=== PATIENT | female | born 1940 | race Caucasian/White ===

== ENCOUNTER 2017-05-07 16:17 | Inpatient (IN) | payer MEDICARE, OTHER ==
[~2017-05-07] VITALS: Ht 165.1 cm; Wt 65.8 kg
--- NOTE | 2017-05-07 16:17 | NUR ---
BIB [facility] FOR GENERALIZED WEAKNESS. NAD NOTED. PT AAO X3, RR EVEN AND UNLABORED. VSS. PT PLACED IN GOWN AND MONITOR. MD AT BEDSIDE FOR EVAL.
[2017-05-07] MEDS ORDERED: IV NS 0.9% 1,000 ML BAG IV ONE (16:30)
[2017-05-07 16:41] LABS: BASOPHILS # (AUTO) 0.5 /CMM (0.0-0.2); BASOPHILS % (AUTO) 4.6 % (0.0-2.0); EOSINOPHILS # (AUTO) 0.1 /CMM (0.0-0.7); EOSINOPHILS % (AUTO) 1.4 % (0.0-6.0); HEMATOCRIT 37 % (33-45); HEMOGLOBIN 12.2 g/dL (11.5-14.8); LYMPHOCYTES # (AUTO) 1.6 /CMM (0.8-4.8); LYMPHOCYTES % (AUTO) 15.8 % (20.0-44.0); MEAN CORPUSCULAR HEMOGLOBIN 33 PG (26.0-33.0); MEAN CORPUSCULAR HGB CONC 33 g/dl (31.0-36.0); MEAN CORPUSCULAR VOLUME 97 fL (82-100); MONOCYTES # (AUTO) 1.6 /CMM (0.1-1.30); MONOCYTES % (AUTO) 16.2 % (2.0-12.0); NEUTROPHILS # (AUTO) 6.1 /CMM (1.8-8.9); PLATELET COUNT (AUTO) 234 /CMM (150-450); RDW COEFFICIENT OF VARIATION 12.5 (11.5-15.0); RED BLOOD CELL COUNT(AUTO) 3.75 MIL/uL (4.0-5.2); WHITE BLOOD COUNT (AUTO) 9.9 K/uL (4.3-11.0)
--- NOTE | 2017-05-07 16:45 | NUR ---
URINE OBTAINED SENT TO LAB
[2017-05-07 16:52] LABS: CALCIUM, SERUM 9.1 mg/dL (8.5-10.1); CARBON DIOXIDE 32 mmol/L (21-32); CHLORIDE 104 mmol/L (98-107); CREATININE 0.9 mg/dL (0.6-1.3); GLUCOSE 161 mg/dL (74-106); POTASSIUM 4.1 mmol/L (3.5-5.1); SODIUM SERUM 143 mmol/L (136-145); UREA NITROGEN, BLOOD 34 mg/dL (7-18)
[2017-05-07 16:57] LABS: ALANINE AMINOTRANSFERASE 11 U/L (12-78); ALBUMIN 2.3 g/dL (3.4-5.0); ALKALINE PHOSPHATASE 69 U/L (46-116); ASPARTATE AMINOTRANSFERASE 11 U/L (15-37); BILIRUBIN,TOTAL 0.2 mg/dL (0.2-1.0); TOTAL PROTEIN, SERUM 6.6 g/dL (6.4-8.2)
[2017-05-07 17:05] LABS: TROPONIN I < 0.017 ng/mL (0.00-0.056)
[2017-05-07] MEDS ORDERED: DIVA500T2 PO (17:12)
[2017-05-07] MEDS ORDERED: TRIH2TAB3 PO (17:12)
[2017-05-07] MEDS ORDERED: ACET-2605 PO (17:12)
[2017-05-07] MEDS ORDERED: OLAN10TA3 PO (17:12)
[2017-05-07] MEDS ORDERED: FLUP5TAB PO (17:12)
[2017-05-07 17:21] LABS: INR 0.94 (0.87-1.13); PROTHROMBIN TIME 9.8 SECS (9.5-12.7)
[2017-05-07 17:37] LABS: APPEARANCE,URINE Clear (CLEAR); BILIRUBIN,URINE SMALL (NEGATIVE); BLOOD, URINE Negative Ery/uL (NEGATIVE); COLOR,URINE Dark (YELLOW); KETONES,URINE Trace (NEGATIVE); LEUKOCYTE ESTERASE ,URINE Negative (NEGATIVE); NITRITE, URINE Negative (NEGATIVE); PROTEIN,URINE 100 mg/dl (NEGATIVE); UGLUCOSE Negative (NEGATIVE)
[2017-05-07 17:57] LABS: BACTERIA,URINE Few /HPF (None Seen); HYALINE CASTS, URINE Rare /LPF (None Seen); RBC,URINE 0-2 /HPF (0-2); SQUAMOUS EPITHELIAL CELL,UR Few /HPF (None Seen); WBC,URINE 0-2 /HPF (0-3)
--- NOTE | 2017-05-07 18:47 | NUR ---
BED 114-2
--- NOTE | 2017-05-07 18:50 | NUR ---
DR. TORY MELARA.
--- NOTE | 2017-05-07 18:58 | NUR ---
REPORT GIVEN TO JENNY MOCK FOR RHONDA
--- NOTE | 2017-05-07 19:33 | NUR ---
CHARLEE GARCIA TALKING TO DR. HERNANDEZ REGARDING PT ADMISSION.
[2017-05-07 20:00] VITALS: BP 122/99
--- NOTE | 2017-05-07 20:00 | NUR ---
RN NOTES RECEIVED PATIENT FROM ER VIA STRETCHER ACCOMPANIED BY ONE STAFF IN STABLE CONDITION. NO DISTRESS NOTED. BREATHING EVEN AND UNLABORED. ON O2 AT 2LPM VIA NASAL CANNULA WELL TOLERATED. ALERT AND RESPONSIVE WITH CONFUSION. ABLE TO VERBALLY COMMUNICATE NEEDS. VITAL SIGNS WNL. NO COMPLAINT OF PAIN OR DISCOMFORT. RIGHT HAND PIV LINE PATENT AND INTACT. WILL CONTINUE TO MONITOR.
[2017-05-07] MEDS ORDERED: ONDANSETRON HCL/PF 4 MG/2 ML VIAL IV PRN (20:30)
[2017-05-07] MEDS ORDERED: LORAZEPAM 0.5 MG TABLET PO PRN (20:30)
[2017-05-07] MEDS: ENOXAPARIN SODIUM 30 MG/0.3 ML DISP.SYRIN SQ SCH (21:56)
[2017-05-07] MEDS: IV D5/ 0.9% NACL 1,000 ML IV PRN (21:58)
[2017-05-07] MEDS ORDERED: DIVALPROEX SODIUM 500 MG TABLET.DR PO ONE (23:06)
[2017-05-07] MEDS ORDERED: TRIHEXYPHENIDYL HCL 2 MG TABLET ONE (23:13)
[2017-05-07] MEDS: DIVALPROEX SODIUM 500 MG TABLET.DR PO SCH (23:16)
[2017-05-07] MEDS: TRIHEXYPHENIDYL HCL 2 MG TABLET PO SCH (23:19)
[2017-05-08 04:00] VITALS: BP 106/61
--- NOTE | 2017-05-08 06:14 | NUR ---
RN CLOSING NOTES PATIENT IN BED, NO DISTRESS NOTED. BREATHING EVEN AND UNLABORED. O2 AT 2LPM VIA NASAL CANNULA WELL TOLERATED. NO PHYSICAL MANIFESTATION OF PAIN OR DISCOMFORT. NO SIGNIFICANT CHANGE OF CONDITION. WILL ENDORSE TO AM SHIFT FOR CONTINUITY OF CARE.
--- NOTE | 2017-05-08 07:15 | NUR ---
RN INITIAL NOTES: REC'D PT AWAKE ON BED, NOT IN ANY DISTRESS, A/O X 1. ON O2 AT 2LPM/NC, NO SOB. HAS R HAND G18 PL, PATENT & INTACT W/ NO S/SX OF INFECTION/INFILTRATION NOTED, ON D5NS X 75 CC/HR INFUSING WELL. PROVIDED COMFORT & SAFETY MEASURES. BED KEPT LOW & IN LOCKED POS. CALL LIGHT PLACED W/IN REACH. WILL CONTINUE TO MONITOR AND ATTEND PT NEEDS.
[2017-05-08 07:47] LABS: BASOPHILS % (AUTO) 0.1 % (0.0-2.0); EOSINOPHILS # (AUTO) 0.1 /CMM (0.0-0.7); EOSINOPHILS % (AUTO) 1.5 % (0.0-6.0); HEMATOCRIT 36 % (33-45); LYMPHOCYTES # (AUTO) 1.4 /CMM (0.8-4.8); LYMPHOCYTES % (AUTO) 17.7 % (20.0-44.0); MEAN CORPUSCULAR HEMOGLOBIN 33 PG (26.0-33.0); MEAN CORPUSCULAR HGB CONC 33 g/dl (31.0-36.0); MEAN CORPUSCULAR VOLUME 99 fL (82-100); MONOCYTES # (AUTO) 1.1 /CMM (0.1-1.30); MONOCYTES % (AUTO) 14.1 % (2.0-12.0); NEUTROPHILS # (AUTO) 5.4 /CMM (1.8-8.9); NEUTROPHILS % (AUTO) 66.6 % (43.0-81.0); PLATELET COUNT (AUTO) 230 /CMM (150-450); RDW COEFFICIENT OF VARIATION 13.3 (11.5-15.0); RED BLOOD CELL COUNT(AUTO) 3.63 MIL/uL (4.0-5.2); WHITE BLOOD COUNT (AUTO) 8.1 K/uL (4.3-11.0)
[2017-05-08 08:00] VITALS: BP 139/70
[2017-05-08 08:12] LABS: CALCIUM, SERUM 8.8 mg/dL (8.5-10.1); CARBON DIOXIDE 34 mmol/L (21-32); CHLORIDE 106 mmol/L (98-107); CREATININE 0.7 mg/dL (0.6-1.3); GLUCOSE 124 mg/dL (74-106); MAGNESIUM 1.8 mg/dL (1.8-2.4); SODIUM SERUM 144 mmol/L (136-145); UREA NITROGEN, BLOOD 24 mg/dL (7-18)
--- NOTE | 2017-05-08 09:00 | NUR ---
RN NOTES: PT SEEN & EXAMINED BY DR. SPEARS. PER MD TAYLOR TO ORDER DIETARY CONSULT DUE TO POOR APPETITE.
[2017-05-08] MEDS: DIVALPROEX SODIUM 500 MG TABLET.DR PO SCH ×2 (09:23→21:13)
[2017-05-08] MEDS: PANTOPRAZOLE 40 MG TABLET.DR PO SCH (09:23)
[2017-05-08] MEDS: FLUPHENAZINE HCL 5 MG TABLET PO SCH ×2 (09:23→21:13)
[2017-05-08] MEDS: TRIHEXYPHENIDYL HCL 2 MG TABLET PO SCH ×3 (09:23→17:14)
[2017-05-08] MEDS: ASPIRIN 81 MG TAB.CHEW PO SCH (09:23)
[2017-05-08] MEDS: BOOST PLUS FOOD-VANILLA 237 ML BOX PO SCH ×3 (11:00→21:07)
--- NOTE | 2017-05-08 11:07 | NUR ---
RN NOTES: CT CHEST, ABDOMEN & PELVIS RELAYED TO DR. SPEARS W/ ORDERS TO START PT ON LEVAQUIN 500MG IV DAILY AND FLAGYL 500MG IV Q8H.
[2017-05-08] MEDS: IV D5/ 0.9% NACL 1,000 ML IV PRN (11:28)
[2017-05-08] MEDS: LEVOFLOXACIN 500 MG /D5W 100ML 500 MG in PREMIX 1 EA IV SCH (11:48)
--- NOTE | 2017-05-08 13:00 | NUR ---
RN NOTES: DR. SPEARS MADE AWARE THAT PT IS COUGHING DURING FEEDING. AGREED TO ORDER SWALLOW EVALUATION. PER ST, PT IS HIGH RISK FOR ASPIRATION. DIET CHANGED TO PUREED DIET AND NECTAR THICK LIQUIDS.
[2017-05-08] MEDS: METRONIDAZOLE 500MG/ NS 100ML 500 MG in PREMIX 1 EA IV SCH ×2 (13:35→21:07)
[2017-05-08 14:47] LABS: APPEARANCE,URINE CLEAR (CLEAR); BILIRUBIN,URINE NEGATIVE (NEGATIVE); BLOOD, URINE NEGATIVE Ery/uL (NEGATIVE); COLOR,URINE YELLOW (YELLOW); KETONES,URINE NEGATIVE (NEGATIVE); LEUKOCYTE ESTERASE ,URINE NEGATIVE (NEGATIVE); NITRITE, URINE NEGATIVE (NEGATIVE); PH,URINE 6.5 (5.0-8.0); PROTEIN,URINE TRACE mg/dl (NEGATIVE); UGLUCOSE NEGATIVE (NEGATIVE); UROBILINOGEN,URINE 0.2 EU/dL (0.2)
[2017-05-08 14:56] LABS: RBC,URINE 0-2 /HPF (0-2); WBC,URINE 0-2 /HPF (0-3)
[2017-05-08 14:57] LABS: BACTERIA,URINE Few /HPF (None Seen); SQUAMOUS EPITHELIAL CELL,UR Few /HPF (None Seen)
[2017-05-08 16:00] VITALS: BP 137/63
[2017-05-08] MEDS: OLANZAPINE 10 MG TABLET PO SCH (17:14)
--- NOTE | 2017-05-08 17:31 | NUR ---
Spoke with Rangel victim witness administrator for [facility] [phone], confirmed patient resides at the [facility]. Patient can transfer from bed to chair, she utilized her wheelchair for mobility. Has no homehealth reported.Patient pcp is Dr. Smith, psychiatrist is Dr. Estrada [phone]. If patient need SNF - will use [place], if patient stable to return to the [facility]- bed is available as per Rangel. Addendum: 05/08/17 at 1732 by TROY BUENROSTRO RN Amended: Links added.
--- NOTE | 2017-05-08 18:31 | NUR ---
RN NOTES: NO ACUTE CHANGES NOTED W/IN SHIFT. PT TOLERATED O2 AT 2LPM/NC, NO SOB. R HAND G18 PL, KEPT PATENT & INTACT W/ NO S/SX OF INFECTION/INFILTRATION NOTED, ON D5NS X 75 CC/HR INFUSING WELL. KEPT WELL RESTED. NEEDS ATTENDED. STRICT ASPIRATION PRECAUTION OBSERVED. BED KEPT LOW & IN LOCKED POS. CALL LIGHT PLACED W/IN REACH. WILL ENDORSE TO PM RN FOR RHONDA.
[2017-05-08] MEDS ORDERED: Z GUARD REMEDY 4 OZ OINT TP PRN (19:00)
[2017-05-08 20:00] VITALS: BP 155/82
--- NOTE | 2017-05-08 20:00 | NUR ---
RN NOTES RECEIVED PATIENT AWAKE IN BED WITH NO DISTRESS NOTED. BREATHING EVEN AND UNLABORED. NO PHYSICAL MANIFESTATION OF PAIN OR DISCOMFORT. ON 2L O2 VIA NC, WELL TOLERATED. VITAL SIGNS WNL. ALERT AND RESPONSIVE. VERBALLY ABLE TO COMMUNICATE NEEDS. KEPT CLEAN AND DRY. WILL CONTINUE TO MONITOR.
[2017-05-08] MEDS: ENOXAPARIN SODIUM 30 MG/0.3 ML DISP.SYRIN SQ SCH (21:08)
[2017-05-09] VITALS (7 sets, daily range): BP systolic 107–154; BP diastolic 48–80
[2017-05-09] MEDS: IV D5/ 0.9% NACL 1,000 ML IV PRN (00:34)
[2017-05-09] MEDS: METRONIDAZOLE 500MG/ NS 100ML 500 MG in PREMIX 1 EA IV SCH ×3 (04:38→22:16)
[2017-05-09 06:35] LABS: CALCIUM, SERUM 9.2 mg/dL (8.5-10.1); CARBON DIOXIDE 32 mmol/L (21-32); CHLORIDE 105 mmol/L (98-107); CREATININE 0.6 mg/dL (0.6-1.3); GLUCOSE 122 mg/dL (74-106); MAGNESIUM 1.7 mg/dL (1.8-2.4); SODIUM SERUM 143 mmol/L (136-145); UREA NITROGEN, BLOOD 16 mg/dL (7-18)
--- NOTE | 2017-05-09 06:35 | NUR ---
RN NOTES RECEIVED PATIENT FROM [facility] VIA AMBULANCE ON A GURNEY ACCOMPANIED BY 3 KEG WASHER. NO RESPIRATORY DISTRESS OR SHORTNESS OF BREATH. BREATHING EVEN AND UNLABORED. ALERT AND ORIENTED. VIETNAMESE SPEAKING, VERBALLY ABLE TO COMMUNICATE NEEDS. RAC LINE PATENT AND INTACT. ON O2 AT 2LPM VIA NASAL CANNULA. SKIN ASSESSMENT DONE. 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 ASKED ABOUT HOME MEDS, PATIENT STATED THAT IT IS THE SISTER WHO KNOWS HIS HOME MEDS AND THE SISTER WILL BE AVAILABLE AROUND 8AM. CALLED MD, SPOKE WITH DR. MYRNA CHANCE AND REPORTED NEW ADMISSION. TO CALL BACK ONCE HOME MED IS IN THE MED RECON. WILL ENDORSE TO AM SHIFT FOR CONTINUITY OF CARE.
[2017-05-09 06:36] LABS: BASOPHILS % (AUTO) 0.1 % (0.0-2.0); EOSINOPHILS % (AUTO) 0.5 % (0.0-6.0); HEMATOCRIT 37 % (33-45); HEMOGLOBIN 12.2 g/dL (11.5-14.8); LYMPHOCYTES # (AUTO) 1.1 /CMM (0.8-4.8); LYMPHOCYTES % (AUTO) 14.7 % (20.0-44.0); MEAN CORPUSCULAR HEMOGLOBIN 32 PG (26.0-33.0); MEAN CORPUSCULAR HGB CONC 33 g/dl (31.0-36.0); MEAN CORPUSCULAR VOLUME 99 fL (82-100); MONOCYTES # (AUTO) 1.3 /CMM (0.1-1.30); NEUTROPHILS % (AUTO) 66.7 % (43.0-81.0); PLATELET COUNT (AUTO) 222 /CMM (150-450); RDW COEFFICIENT OF VARIATION 13.3 (11.5-15.0); RED BLOOD CELL COUNT(AUTO) 3.78 MIL/uL (4.0-5.2); WHITE BLOOD COUNT (AUTO) 7.5 K/uL (4.3-11.0)
--- NOTE | 2017-05-09 07:01 | NUR ---
RN CLOSING NOTES PATIENT RESTING COMFORTABLY IN BED WITH NO DISTRESS, BREATHING EVEN AND UNLABORED. NO COMPLAINT OF PAIN. VITAL SIGNS WITH NORMAL LEVEL. NO SIGNIFICANT CHANGE OF CONDITION. WILL ENDORSE TO AM SHIFT FOR CONTINUITY OF CARE.
[2017-05-09] MEDS: DIVALPROEX SODIUM 500 MG TABLET.DR PO SCH ×2 (08:23→22:19)
[2017-05-09] MEDS: ASPIRIN 81 MG TAB.CHEW PO SCH (08:23)
[2017-05-09] MEDS: ACETAMINOPHEN 325 MG TABLET PO PRN (08:23)
[2017-05-09] MEDS: TRIHEXYPHENIDYL HCL 2 MG TABLET PO SCH ×3 (08:23→18:08)
[2017-05-09] MEDS: PANTOPRAZOLE 40 MG TABLET.DR PO SCH (08:24)
[2017-05-09] MEDS: FLUPHENAZINE HCL 5 MG TABLET PO SCH ×2 (08:25→22:20)
[2017-05-09] MEDS: Magnesium 1GM/D5W 100ML PREMIX 100 ML IV SCH ×2 (11:11→12:51)
[2017-05-09] MEDS: BOOST PLUS FOOD-VANILLA 237 ML BOX PO SCH ×3 (11:13→20:40)
[2017-05-09] MEDS: LACTULOSE 10 G/15 ML UDC (PYXIS) PO SCH (11:56)
[2017-05-09] MEDS: POLYETHYLENE GLYCOL 3350 17 GM POWD.PACK PO SCH ×2 (11:56→22:16)
[2017-05-09] MEDS: SENNOSIDES/DOCUSATE SODIUM 1 TAB TABLET PO SCH (11:56)
[2017-05-09] MEDS ORDERED: IV NS 0.9% 1,000 ML IV PRN ×2 (12:00)
[2017-05-09] MEDS ORDERED: NA PHOS,M-B/NA PHOS,DI-BA 1 EA ENEMA RC PRN (12:00)
[2017-05-09] MEDS: LEVOFLOXACIN 500 MG /D5W 100ML 500 MG in PREMIX 1 EA IV SCH (12:22)
[2017-05-09] MEDS ORDERED: ALBUTEROL FS 2.5 MG/3 ML VIAL.NEB NEB PRN (12:30)
[2017-05-09 12:34] LABS: ABG BASE EXCESS 5.2 mmol/L; ABG OXYGEN SATURATION 88.6 % (92.0-98.5); ABG PCO2 49.2 mmHg (35.0-45.0); ABG PH 7.414 (7.350-7.450); ABG PO2 55.7 mmHg (75.0-100.0); AaDO2 35.1 mmHg; COHb 1.6 % (0.5-1.5); O2Hb 87.2 % (94.0-97.0); SITE, ABG Left Radial; VENT MODE, BG ROOM AIR
[2017-05-09 12:40] LABS: TROPONIN I 0.051 ng/mL (0.00-0.056)
[2017-05-09] MEDS ORDERED: METOPROLOL TARTRATE INJ 5 MG/5 ML AMPUL IVP ONE (13:30)
--- NOTE | 2017-05-09 13:36 | NUR ---
RELAYED TO DR. MORALES PT. VERY TACHY 160'S,RELAYED ABG RESULT,LABS AND CXR WITH NEW ORDERS LEFT AND CARRIED OUT.
--- NOTE | 2017-05-09 14:00 | NUR ---
RN NOTE PT HR WENT DOWN TO ST106 BPM. BP WNL. WILL CONTINUE TO MONITOR.
--- NOTE | 2017-05-09 14:12 | NUR ---
PATIENT REFUSING CT OF CHEST,EXPLAIN THE REASON FOR TEST PT. STILL REFUSING,DR. MORALES NOTIFIED.
--- NOTE | 2017-05-09 14:35 | NUR ---
RN NOTE ASKED PT AGAIN REGARDING THE CT ANGIOGRAM CONSENT, STILL REFUSED TO GO THROUGH CT SCAN. RISKS AND BENEFITS EXPLAINED, STILL REFUSED.
[2017-05-09] MEDS: OLANZAPINE 10 MG TABLET PO SCH (18:08)
--- NOTE | 2017-05-09 20:09 | NUR ---
RN INITIAL NOTES PATIENT IN BED, NO DISTRESS NOTED. BREATHING EVEN AND UNLABORED. O2 AT 2LPM VIA NASAL CANNULA WELL TOLERATED. WILL CONTINUE TO MONITOR PT.
--- NOTE | 2017-05-09 22:00 | NUR ---
RN NOTE PT STILL REFUSED TO GO THROUGH CT SCAN. RISKS AND BENEFITS EXPLAINED BY RN. PT REFUSED CT AFTER DAUGHTER OBINNA ENCOURAGED HER TO HAVE CT DONE.PT REFUSED FLEET ENEMA.
[2017-05-09] MEDS: ENOXAPARIN SODIUM 30 MG/0.3 ML DISP.SYRIN SQ SCH (22:17)
--- NOTE | 2017-05-09 23:20 | NUR ---
PT REFUSING CT SCAN, RN IS AWARE.
[2017-05-10] VITALS (10 sets, daily range): BP systolic 88–152; BP diastolic 58–78
[2017-05-10] MEDS: IV D5/ 0.9% NACL 1,000 ML IV PRN (00:03)
[2017-05-10] MEDS: METRONIDAZOLE 500MG/ NS 100ML 500 MG in PREMIX 1 EA IV SCH ×3 (05:13→22:57)
--- NOTE | 2017-05-10 06:19 | NUR ---
RN CLOSING NOTES PATIENT RESTING IN BED WITH NO DISTRESS, BREATHING EVEN AND UNLABORED. HR 94-102 OVER THE PM SHIFT.PT REFUSED FLEET ENEMA AND CT SCAN. NO SIGNIFICANT CHANGE OF CONDITION. WILL ENDORSE TO AM SHIFT FOR CONTINUITY OF CARE.
[2017-05-10 06:37] LABS: BASOPHILS % (AUTO) 0.1 % (0.0-2.0); EOSINOPHILS % (AUTO) 0.4 % (0.0-6.0); HEMATOCRIT 35 % (33-45); HEMOGLOBIN 11.6 g/dL (11.5-14.8); LYMPHOCYTES # (AUTO) 0.9 /CMM (0.8-4.8); LYMPHOCYTES % (AUTO) 11.7 % (20.0-44.0); MEAN CORPUSCULAR HEMOGLOBIN 33 PG (26.0-33.0); MEAN CORPUSCULAR HGB CONC 33 g/dl (31.0-36.0); MEAN CORPUSCULAR VOLUME 99 fL (82-100); MONOCYTES # (AUTO) 1.1 /CMM (0.1-1.30); MONOCYTES % (AUTO) 13.5 % (2.0-12.0); NEUTROPHILS % (AUTO) 74.3 % (43.0-81.0); PLATELET COUNT (AUTO) 254 /CMM (150-450); RDW COEFFICIENT OF VARIATION 13.4 (11.5-15.0); WHITE BLOOD COUNT (AUTO) 8.1 K/uL (4.3-11.0)
[2017-05-10 06:40] LABS: CALCIUM, SERUM 9.1 mg/dL (8.5-10.1); CARBON DIOXIDE 31 mmol/L (21-32); CHLORIDE 107 mmol/L (98-107); CREATININE 0.6 mg/dL (0.6-1.3); GLUCOSE 136 mg/dL (74-106); MAGNESIUM 1.8 mg/dL (1.8-2.4); SODIUM SERUM 144 mmol/L (136-145); UREA NITROGEN, BLOOD 18 mg/dL (7-18)
[2017-05-10 06:43] LABS: THYROID STIMULATING HORMONE 1.534 uIU/mL (0.358-3.74)
--- NOTE | 2017-05-10 07:30 | NUR ---
RN NOTES RECEIVED PATIENT IN BED ALERT, AWAKE, ORIENTED X1 WITH BREATHING NORMAL, EVEN AND UNLABORED. NO SOB NOTED. NO ACUTE DISTRESS NOTED. TELE MONITOR REVEALS ST, SX=018. IV R HAND IS PATENT AND INTACT, RUNNING IVF PER ORDER. F/C IS PATENT AND INTACT, DRAINING WITH GRAVITY. KEPT CLEAN, DRY AND COMFORTABLE. ALL NEEDS ATTENDED. SAFETY MEASURE OBSERVED. CALL LIGHT WITH IN REACH. WILL CONT TO MONITOR.
[2017-05-10] MEDS: PANTOPRAZOLE 40 MG TABLET.DR PO SCH (08:21)
[2017-05-10] MEDS: TRIHEXYPHENIDYL HCL 2 MG TABLET PO SCH ×3 (08:35→17:20)
[2017-05-10] MEDS: SENNOSIDES/DOCUSATE SODIUM 1 TAB TABLET PO SCH (08:35)
[2017-05-10] MEDS: DIVALPROEX SODIUM 500 MG TABLET.DR PO SCH ×2 (08:35→22:57)
[2017-05-10] MEDS: ASPIRIN 81 MG TAB.CHEW PO SCH (08:35)
[2017-05-10] MEDS: LACTULOSE 10 G/15 ML UDC (PYXIS) PO SCH (08:35)
[2017-05-10] MEDS: FLUPHENAZINE HCL 5 MG TABLET PO SCH ×2 (08:40→23:04)
[2017-05-10] MEDS: BOOST PLUS FOOD-VANILLA 237 ML BOX PO SCH ×3 (09:24→22:57)
[2017-05-10 09:29] LABS: IRON, SERUM 16 ug/dl (50-175); TOTAL IRON BINDING CAPACITY 119 ug/dl (250-450)
[2017-05-10] MEDS: ACETAMINOPHEN 325 MG TABLET PO PRN (11:37)
[2017-05-10] MEDS ORDERED: NA PHOS,M-B/NA PHOS,DI-BA 1 EA ENEMA RC ONE (12:10)
[2017-05-10] MEDS: LEVOFLOXACIN (500MG) 500 MG TABLET PO SCH (12:25)
[2017-05-10] MEDS ORDERED: BISACODYL SUPP (10 MG) 10 MG/SUPP.RECT SUPP.RECT RC ONE (12:30)
--- NOTE | 2017-05-10 14:44 | NUR ---
RN NOTES PATIENT ALERT, AWAKE, ORIENTED X2, NOTED WITH HR, 176 SUSTAINED, MS=258/50, RESP =18, O2 SATURATION=95%% ON 2L O2 VIA NC, DENIES ANY CHEST PAIN, NO ACUTE DISTRESS NOTED. CALLED RAPID RESPONSE. DR MANTILLA MADE AWARE.
[2017-05-10] MEDS ORDERED: DILTIAZEM HCL 25 MG IV IV ONE (15:00)
[2017-05-10] MEDS ORDERED: AMIODARONE 900 MG in IV D5W 482 ML IV PRN (15:00)
[2017-05-10] MEDS ORDERED: METOPROLOL TARTRATE INJ 5 MG/5 ML AMPUL IVP PRN (15:00)
[2017-05-10 15:27] LABS: CALCIUM, SERUM 8.9 mg/dL (8.5-10.1); CARBON DIOXIDE 30 mmol/L (21-32); CHLORIDE 106 mmol/L (98-107); CREATININE 0.8 mg/dL (0.6-1.3); GLUCOSE 155 mg/dL (74-106); MAGNESIUM 1.6 mg/dL (1.8-2.4); POTASSIUM 3.8 mmol/L (3.5-5.1); SODIUM SERUM 141 mmol/L (136-145); UREA NITROGEN, BLOOD 20 mg/dL (7-18)
[2017-05-10] MEDS ORDERED: AMIODARONE 150 MG in IV D5W 100 ML IV ONE (16:00)
--- NOTE | 2017-05-10 16:00 | NUR ---
PATIENT REPEAT LABS MAGNESIUM IS 1.6,ALSO SUSTAINING [address] MORALES AND RELAYED DR. LORENA BROUSSARD FOR AMIO DRIP AND DR. JOSE RAFAEL BRIGHT TO START ON PO LOPRESSOR AND REPLACED MAGNESIUM AND ALSO GAVE PARAMETERS FOR CARDIAC MEDS. PATIENT AWAKE ,ALERT AND BP 120/74.RR 18 AND SAT 95% ON 2 LITERS,NO ACUTE DISTRESS, PT. VERBALIZED " I AM FINE",DENEIS ANY PAIN.WILL CONTINUE TO MONITOR.
[2017-05-10] MEDS: Magnesium 1GM/D5W 100ML PREMIX 100 ML IV SCH ×3 (16:04→18:03)
[2017-05-10] MEDS: SOD FERRIC GLUC 125 MG in IV NS 0.9% 100 ML IV SCH (16:39)
[2017-05-10] MEDS ORDERED: METOPROLOL TARTRATE 25 MG TABLET PO SCH (17:00)
--- NOTE | 2017-05-10 17:00 | NUR ---
PATIENT HR ON 110 TO 130 STILL AFLUTTER,PT. AWAKE /ALERT ,NO ACUTE DISTRESS,MG BEING REPLACED ORDERED BY MD,WILL CONTINUE TO MONITOR.
[2017-05-10] MEDS: OLANZAPINE 10 MG TABLET PO SCH (17:20)
--- NOTE | 2017-05-10 17:30 | NUR ---
DR. CARRILLO NOTIFIED PATIENT CONVERTED TO SINUS RHYTHM SUSTAINING ,SBP ON 80'S,AND RELAYED DR. MORALES PLACED PT. ON LOPRESSOR PO,WITH NEW ORDERS TO D/C LOPRESSOR AND CONTINUE AMIODARONE DESPITE SBP 80'S,WILL CONTINUE TO MONITOR.PATIENT AWAKE/ALERT ,NO DISTRESS.
--- NOTE | 2017-05-10 17:35 | NUR ---
ADDENDUM ON TELEPHONE ORDER FOR LOPRESSOR PO WAS ORDERED BY DR. MORALES AND WAS D/C BY DR. CARRILLO POST PATIENT CONVERTED TO SINUS RHYTHM.
--- NOTE | 2017-05-10 18:10 | NUR ---
DR. MORALES ALSO UPDATED PATIENT CONVERTED TO SINUS RHYTM NO NEW ORDERS.
--- NOTE | 2017-05-10 19:06 | NUR ---
RN NOTES PATIENT ENDORSED TO NEXT SHIFT IN STABLE CONDITION WITH BREATHING NORMAL, EVEN AND UNLABORED. NO SOB NOTED. NO ACUTE DISTRESS NOTED. KEPT CLEAN, DRY AND COMFORTABLE. ALL NEEDS ATTENDED. SAFETY MEASURE OBSERVED. CALL LIGHT WITH IN REACH. WILL CONT TO MONITOR.
--- NOTE | 2017-05-10 19:30 | NUR ---
RN NOTE. IV RT THUMP INFILTRATED SITE IS SWELLING PAIL TESTER AWARE. IV REMOVED. WILL CONTINUE TO MONITOR.
--- NOTE | 2017-05-10 20:00 | NUR ---
RN NOTE. INITIAL ASSESSMENT RECEIVED THE PT REST ON THE BED. AWAKE. ALERT. POOR CONCENTRATION. OXYGEN 2L VIA NASAL CANNULA. SAT 98%. FELLER SEAM OPERATOR SHOWING NSR. IV RT THUMP 20G. INFILTRATED. IV CANNULA REMOVED. AFEBRILE. FC PATENT. HOB ELEVATED. TURN AND REPOSITION Q2H. AMIODARONE 1MG/MIN. WILL CONTINUE TO MONITOR VITALS.
--- NOTE | 2017-05-10 21:00 | NUR ---
AMIODARONE 0.5MG/MIN. RUNNING.
[2017-05-10] MEDS: POLYETHYLENE GLYCOL 3350 17 GM POWD.PACK PO SCH (22:58)
[2017-05-10] MEDS: ENOXAPARIN SODIUM 30 MG/0.3 ML DISP.SYRIN SQ SCH (22:58)
[2017-05-11] VITALS: BP 136/75
--- NOTE | 2017-05-11 03:44 | NUR ---
RN NOTE AM CARE, ORAL CARE, BED BATH GIVEN. LINEN CHANGED. REMAINING SAME OXYGEN 2L VIA NASAL CANNULA SAT 98%., NO ACUTE DISTRESS NOTED. TRAUMA PROGRAM MANAGER SHOWING NSR. IV LT HAND 20G. AMIODARONE 0.5MG/MIN, FC PATENT URINE [id number]. HOB ELEVATED. TURN AND REPOSITION Q2H.
[2017-05-11 04:00] VITALS: BP 134/60
[2017-05-11] MEDS: METRONIDAZOLE 500MG/ NS 100ML 500 MG in PREMIX 1 EA IV SCH (05:07)
[2017-05-11 06:33] LABS: BASOPHILS % (AUTO) 0.2 % (0.0-2.0); EOSINOPHILS # (AUTO) 0.1 /CMM (0.0-0.7); EOSINOPHILS % (AUTO) 0.9 % (0.0-6.0); HEMATOCRIT 36 % (33-45); HEMOGLOBIN 11.7 g/dL (11.5-14.8); LYMPHOCYTES # (AUTO) 0.8 /CMM (0.8-4.8); LYMPHOCYTES % (AUTO) 8.1 % (20.0-44.0); MEAN CORPUSCULAR HEMOGLOBIN 32 PG (26.0-33.0); MEAN CORPUSCULAR HGB CONC 33 g/dl (31.0-36.0); MEAN CORPUSCULAR VOLUME 99 fL (82-100); MONOCYTES % (AUTO) 10.2 % (2.0-12.0); NEUTROPHILS # (AUTO) 8.2 /CMM (1.8-8.9); NEUTROPHILS % (AUTO) 80.6 % (43.0-81.0); PLATELET COUNT (AUTO) 249 /CMM (150-450); RDW COEFFICIENT OF VARIATION 13.1 (11.5-15.0); WHITE BLOOD COUNT (AUTO) 10.1 K/uL (4.3-11.0)
[2017-05-11 06:45] LABS: CALCIUM, SERUM 8.9 mg/dL (8.5-10.1); CARBON DIOXIDE 31 mmol/L (21-32); CHLORIDE 105 mmol/L (98-107); CREATININE 0.6 mg/dL (0.6-1.3); GLUCOSE 118 mg/dL (74-106); PHOSPHORUS 3.1 mg/dL (2.5-4.9); POTASSIUM 3.9 mmol/L (3.5-5.1); SODIUM SERUM 143 mmol/L (136-145); UREA NITROGEN, BLOOD 20 mg/dL (7-18)
--- NOTE | 2017-05-11 07:00 | NUR ---
DELFINA INITIAL NOTE RECEIVED PT A/O X2. ON 2L NC, RESPIRATIONS EVEN AND UNLABORED, NO SOB OR DISTRESS NOTED. TELE MONITOR REVEALS SINUS RHYTHM, HR= 90. TWO IVS PRESENT: 1) RIGHT HAND 22G HL AND 2) LEFT HAND 20G RUNNING AMIODARONE GTT AT 0.5 MG/MIN. BOTH IVS FLUSHED, PATENT, INTACT AND FREE OF REDNESS, SWELLING AND INFLAMMATION. PT INCONTINENT OF URINE & STOOL, MALCOLM CATHETER DRAINING TO GRAVITY. SAFETY MEASURES TAKEN: BED LOCKED AND IN LOW POSITION, SIDE RAILS UP X2, BED ALARM ON AND CALL LIGHT WITHIN REACH, WILL CONTINUE TO MONITOR.
[2017-05-11 08:00] VITALS: BP 134/73
[2017-05-11] MEDS: ASPIRIN 81 MG TAB.CHEW PO SCH (08:19)
[2017-05-11] MEDS: LACTULOSE 10 G/15 ML UDC (PYXIS) PO SCH (08:19)
[2017-05-11] MEDS: DIVALPROEX SODIUM 500 MG TABLET.DR PO SCH ×2 (08:19→21:54)
[2017-05-11] MEDS: SENNOSIDES/DOCUSATE SODIUM 1 TAB TABLET PO SCH (08:19)
[2017-05-11] MEDS: TRIHEXYPHENIDYL HCL 2 MG TABLET PO SCH ×3 (08:19→18:24)
[2017-05-11] MEDS: PANTOPRAZOLE 40 MG TABLET.DR PO SCH (08:19)
--- NOTE | 2017-05-11 09:15 | NUR ---
RN NOTE- PT HAS NOAH SCALE OF 12, CURRENTLY ON REGULAR MATTRESS. BED/ MATTRESS SWITCHED TO ISOFLEX BED WITH ASSISTANCE FROM ANETTE GRACIA. WILL CONTINUE TO MONITOR.
[2017-05-11] MEDS: BOOST PLUS FOOD-VANILLA 237 ML BOX PO SCH ×3 (09:44→22:00)
[2017-05-11] MEDS: FLUPHENAZINE HCL 5 MG TABLET PO SCH ×2 (09:45→21:54)
[2017-05-11 12:00] VITALS: BP 141/56
[2017-05-11] MEDS: METRONIDAZOLE 500 MG TABLET PO SCH ×2 (12:27→21:54)
[2017-05-11] MEDS: LEVOFLOXACIN (500MG) 500 MG TABLET PO SCH (12:27)
[2017-05-11] MEDS: AMIODARONE HCL 200 MG TABLET PO SCH ×2 (12:27→18:24)
[2017-05-11] MEDS: SOD FERRIC GLUC 125 MG in IV NS 0.9% 100 ML IV SCH (14:55)
--- NOTE | 2017-05-11 15:30 | NUR ---
RN NOTE- AMIODARONE GTT COMPLETED. (24 HOUR MILDRED). PT ALREADY STARTED ON AMIODARONE [address] CARRILLO. PT MAINTAINS SINUS RHYTHM. WILL CONTINUE TO MONITOR.
[2017-05-11 16:00] VITALS: BP 115/58
[2017-05-11] MEDS: OLANZAPINE 10 MG TABLET PO SCH (18:23)
--- NOTE | 2017-05-11 19:25 | NUR ---
RN NOTES RECEIVED PT AWAKE ON BED. NO ACUTE RESP DISTRESS ON O2 2LPM VIA NC TOLERATED WELL. AOX2 EASILY FORGETS. WARMTH TO TOUCH AFEBRILE. TELE MONITOR READS SR HR 95. SATING 99%. IV SITE ON RIGHT HAND GAUGE 22 INTACT AND PATENT. LEFT HAND WITH REDNESS FROM PREVIOUS IV SITE INFILTRATION.. DENIES ANY PAIN. DENIES CHEST PAIN. ENCOURAGED AND OFFERED FOOD AND DRINKS TO EAT MORE. REFUSED TO EAT MORE. F/C INTACT DRAINED WITH YELLOW/NICOLE COLOR URINE. KEPT PT CLEAN AND DRY. WILL CONTINUE TO MONITOR.
[2017-05-11 20:00] VITALS: BP 123/54
[2017-05-11] MEDS: POLYETHYLENE GLYCOL 3350 17 GM POWD.PACK PO SCH (21:54)
[2017-05-11] MEDS: ENOXAPARIN SODIUM 30 MG/0.3 ML DISP.SYRIN SQ SCH (21:55)
[2017-05-12] VITALS: BP 116/52
[2017-05-12 04:00] VITALS: BP 125/58
[2017-05-12] MEDS: METRONIDAZOLE 500 MG TABLET PO SCH ×2 (05:41→12:08)
--- NOTE | 2017-05-12 06:48 | NUR ---
RN NOTES PT ASLEEP WELL ON BED. NO ACUTE RESP DISTRESS. AFEBRILE. NO SIGNIFICANT CHANGES NOTED. CONTINUE WITH O2 2LPM VIA NC TOLERATED WELL SATING 99% REMAINED SR HR 94. DENIES PAIN NOR CHEST PAIN. NO CHANGE OF MENTAL STATUS. CONTINUE TO ENCOURAGED TO DRINK FLUIDS. KEPT PT CLEAN AND COMFORTABLE IN BED. ALL DUE MEDICINE TOLERATED WELL. CALL LIGHT KEPT WITHIN EASY REACH. WILL ENDORSED CONTINUITY OF CARE TO AM NURSE.
--- NOTE | 2017-05-12 07:05 | NUR ---
RN INITIAL NOTES RECEIVED PT AWAKE, A/OX2. ON 02 AT 2LPM VIA NC. NO RESPIRATORY DISTRESS NOTED. NO SOB NOTED. NO SIGNS OF PAIN NOTED. PT ON TELE MONITOR, SINUS RHYTHM AT 92. IV LINE IN PLACE. FC IN PLACE. NO HEMATURIA NOTED. BLE ELEVATED. WILL MONITOR.
[2017-05-12 08:00] VITALS: BP_SYST 130; BP_SYST 136; BP_DIAS 64
[2017-05-12] MEDS: FLUPHENAZINE HCL 5 MG TABLET PO SCH (08:13)
[2017-05-12] MEDS: SENNOSIDES/DOCUSATE SODIUM 1 TAB TABLET PO SCH (08:13)
[2017-05-12] MEDS: DIVALPROEX SODIUM 500 MG TABLET.DR PO SCH (08:14)
[2017-05-12] MEDS: LACTULOSE 10 G/15 ML UDC (PYXIS) PO SCH (08:14)
[2017-05-12] MEDS: PANTOPRAZOLE 40 MG TABLET.DR PO SCH (08:14)
[2017-05-12] MEDS: ASPIRIN 81 MG TAB.CHEW PO SCH (08:14)
[2017-05-12] MEDS: AMIODARONE HCL 200 MG TABLET PO SCH ×2 (08:15→12:09)
[2017-05-12] MEDS: TRIHEXYPHENIDYL HCL 2 MG TABLET PO SCH ×2 (08:17→12:10)
[2017-05-12] MEDS: BOOST PLUS FOOD-VANILLA 237 ML BOX PO SCH (10:16)
[2017-05-12 12:00] VITALS: BP 143/68
--- NOTE | 2017-05-12 12:00 | NUR ---
RN NOTES SEEN AND EXAMINED BY DR. SPEARS. AWARE OF CURRENT LAB VALUES: WBC 10.1, HGB 11.7, HCT 36, SODIUM 143, POTASSIUM 3.9, BUN 20, CREA 0.6. [facility] KRISH POUCH MAKING MACHINE OPERATOR AWARE. CALLED OBINNA (DTR) #[phone] AND MADE AWARE OF DISCHARGE.
[2017-05-12] MEDS: LEVOFLOXACIN (500MG) 500 MG TABLET PO SCH (12:08)
[2017-05-12 12:09] VITALS: BP 143/68
--- NOTE | 2017-05-12 13:15 | NUR ---
RN NOTES [facility] REPORT GIVEN TO LAM MOCK. ALL PERTINENT INFORMATION GIVEN. PT U/P TIME AT 1330.
--- NOTE | 2017-05-12 14:15 | NUR ---
RN NOTES PT LEFT IN STABLE CONDITION. PT AWAKE, A/OX1-2 WITH PERIODS OF CONFUSION. DENIES ANY PAIN. ON 02 AT 2LPM VIA NC. NO SOB NOTED. PICTURE TAKEN AND PLACED IN THE CHART. OBINNA DTR AWARE OF TRANSFER. LEFT IN STABLE CONDITION.
== END 2017-05-12 14:24 | DRG 309 ==
LOC: ER 16:20 → TELE1 18:54 → MEDSG1 22:14 → TELE1 05-09 12:00 → TELE-TD 05-10 15:09
PROVIDERS: ADMIT Legal Medicine; ATTEND Legal Medicine
DX: I48.91 Unspecified atrial fibrillation (principal); E44.0 Moderate protein-calorie malnutrition; E86.0 Dehydration; F23 Brief psychotic disorder; R62.7 Adult failure to thrive; I48.92 Unspecified atrial flutter; E78.5 Hyperlipidemia, unspecified; D50.9 Iron deficiency anemia, unspecified; F03.90 Unspecified dementia, unspecified severity, without behavioral disturbance, psychotic disturbance, mood disturbance, and anxiety; I10 Essential (primary) hypertension; F29 Unspecified psychosis not due to a substance or known physiological condition; Z73.6 Limitation of activities due to disability; K59.00 Constipation, unspecified; Z68.24 Body mass index [BMI] 24.0-24.9, adult; K52.89 Other specified noninfective gastroenteritis and colitis
CPT/HCPCS: 36415; 36600; 71010-TC; 71250-TC; 80048-TC; 80076-TC; 81000-TC; 82746; 82962-TC; 83540-TC; 83605-TC; 83735-TC; 84100-TC; 84132-TC; 84443-TC; 84484-TC; 85025-TC; 85730-TC; 87040-TC; 87081-TC; 87086-TC; 87400; 92526; 92611-TC; 93307-TC; A4216; A4606; J0282; J1650; J1956; J2916; J3475; J3490; J7030; J7042; J7060; Z7610

== ENCOUNTER 2017-06-01 09:02 | Inpatient (IN) | payer MEDICARE, OTHER ==
[2017-06-01] VITALS (34 sets, daily range): BP systolic 73–142; BP diastolic 33–60
[~2017-06-01] VITALS: Ht 157.5 cm; Wt 68.0 kg
[~2017-06-01 09:02] MED LIST: ACET-2605 PO; DIVA500T2 PO; FLUP5TAB PO; OLAN10TA3 PO; TRIH2TAB3 PO
--- NOTE | 2017-06-01 09:06 | NUR ---
[facility] M[facility]AL [facility] AND SOB; PATIENT RECEIVED ALTERED- PER REPORT PT IS SATING 86% ON ROOM AIR, PATIENT WAS PLACED ON NO REBREATHER- SATING 100%. PATIENT IS AFEBRILE AT THIS TIME. CONNECTED PT TO TELE MONITOR,.
--- NOTE | 2017-06-01 09:07 | NUR ---
PATIENT REMAINS IN DISTRESS WITH LABORED BREATHING. MD ERYN ESCALERA AWRE AND AT BEDSIDE
[2017-06-01] MEDS ORDERED: MIDAZOLAM 50 MG/10 ML VIAL ONE (09:12)
--- NOTE | 2017-06-01 09:15 | NUR ---
VERSED 5MG IVP GIVEN FOLLOWED BY SUCC 100MG IVP FOR INTUBATION.
--- NOTE | 2017-06-01 09:17 | NUR ---
PT WAS SUCCESSFULLY INTUBATED BY MD CERNA
[2017-06-01] MEDS: PROPOFOL 100 ML IV PRN ×2 (09:20→10:40)
--- NOTE | 2017-06-01 09:22 | NUR ---
RECTAL TEMP 100.7
--- NOTE | 2017-06-01 09:23 | NUR ---
CODE SEPSIS CALLED
[2017-06-01] MEDS ORDERED: SUCCINYLCHOLINE CHLORIDE 20 MG/ML VIAL IV ONE (09:30)
[2017-06-01] MEDS ORDERED: PIPERACILLIN /TAZOBACTAM 3.375 G in IV D5W 50 ML IV ONE (09:30)
[2017-06-01] MEDS ORDERED: MIDAZOLAM HCL 5 MG/5ML VIAL IV ONE ×2 (09:30→10:30)
[2017-06-01] MEDS ORDERED: PROPOFOL 100 ML ONE (09:30)
[2017-06-01] MEDS ORDERED: VANCOMYCIN 1 GM in IV D5W 250 ML IV ONE (09:30)
[2017-06-01] MEDS ORDERED: IV NS 0.9% 1,000 ML BAG IV ONE (09:30)
[2017-06-01] MEDS ORDERED: POLY119P2 PO (09:38)
[2017-06-01] MEDS ORDERED: NA P133E RC (09:38)
[2017-06-01] MEDS ORDERED: TRIH2TAB4 PO (09:38)
[2017-06-01] MEDS ORDERED: BISA10SU8 RC (09:38)
[2017-06-01] MEDS ORDERED: MAGN400O6 PO (09:38)
[2017-06-01] MEDS ORDERED: LACT10SO PO (09:38)
[2017-06-01] MEDS ORDERED: AMIO400T4 PO (09:38)
[2017-06-01] MEDS ORDERED: DIVA500T2 PO (09:38)
[2017-06-01] MEDS ORDERED: FLUP5TAB PO (09:38)
[2017-06-01] MEDS ORDERED: ASPI-1169 PO (09:38)
--- NOTE | 2017-06-01 09:40 | NUR ---
RT NOTE PT INTUBATED PER MD ORDER. 7.5 ETT 23 CM AT LIP. SETTINGS PRESCRIBED AC 16 500 50% +5. ALARMS SET PER PROTOCOL AND AUDIBLE. VENT PLUGGED IN TO RED OUTLET. AMBU BAG AT BED SIDE. NO DISTRESS NOTED. WILL CONTINUE TO MONITOR. Addendum: 06/01/17 at 0942 by GEORGETTE CHÁVEZ RT Amended: Links added.
[2017-06-01] MEDS ORDERED: TRAM50TA2 PO (09:42)
[2017-06-01] MEDS ORDERED: ALBU2.5V13 IH (09:42)
[2017-06-01] MEDS ORDERED: SENN-167 PO (09:42)
[2017-06-01] MEDS ORDERED: ACET-868 PO (09:42)
[2017-06-01] MEDS ORDERED: PANT40TA2 PO (09:42)
[2017-06-01] MEDS ORDERED: OLAN10TA3 PO (09:42)
[2017-06-01] MEDS ORDERED: MIDAZOLAM HCL 5 MG/5ML VIAL ONE (10:14)
[2017-06-01 10:17] LABS: APPEARANCE,URINE CLEAR (CLEAR); BILIRUBIN,URINE NEGATIVE (NEGATIVE); BLOOD, URINE NEGATIVE Ery/uL (NEGATIVE); COLOR,URINE YELLOW (YELLOW); KETONES,URINE 1+ (NEGATIVE); LEUKOCYTE ESTERASE ,URINE NEGATIVE (NEGATIVE); NITRITE, URINE NEGATIVE (NEGATIVE); PROTEIN,URINE NEGATIVE (NEGATIVE); UGLUCOSE NEGATIVE (NEGATIVE); UROBILINOGEN,URINE 0.2 EU/dL (0.2)
[2017-06-01 10:19] LABS: EOSINOPHILS # (AUTO) 0.1 /CMM (0.0-0.7); HEMATOCRIT 31 % (33-45); HEMOGLOBIN 10.6 g/dL (11.5-14.8); LYMPHOCYTES # (AUTO) 0.6 /CMM (0.8-4.8); LYMPHOCYTES % (AUTO) 14.3 % (20.0-44.0); MEAN CORPUSCULAR HEMOGLOBIN 33 PG (26.0-33.0); MEAN CORPUSCULAR HGB CONC 34 g/dl (31.0-36.0); MEAN CORPUSCULAR VOLUME 97 fL (82-100); MONOCYTES # (AUTO) 0.7 /CMM (0.1-1.30); MONOCYTES % (AUTO) 17.8 % (2.0-12.0); NEUTROPHILS # (AUTO) 2.7 /CMM (1.8-8.9); NEUTROPHILS % (AUTO) 65.9 % (43.0-81.0); PLATELET COUNT (AUTO) 149 /CMM (150-450); RDW COEFFICIENT OF VARIATION 13.7 (11.5-15.0); RED BLOOD CELL COUNT(AUTO) 3.23 MIL/uL (4.0-5.2); WHITE BLOOD COUNT (AUTO) 4.1 K/uL (4.3-11.0)
[2017-06-01 10:20] LABS: BACTERIA,URINE Few /HPF (None Seen); RBC,URINE 0-2 /HPF (0-2); WBC,URINE 0-2 /HPF (0-3)
[2017-06-01] MEDS ORDERED: MIDAZOLAM HCL 100 MG in IV NS 0.9% 80 ML IV PRN (10:30)
[2017-06-01 10:36] LABS: INR 1.02 (0.87-1.13)
[2017-06-01 10:39] LABS: CALCIUM, SERUM 8.6 mg/dL (8.5-10.1); CARBON DIOXIDE 34 mmol/L (21-32); CHLORIDE 110 mmol/L (98-107); CREATININE 0.9 mg/dL (0.6-1.3); GLUCOSE 93 mg/dL (74-106); SODIUM SERUM 147 mmol/L (136-145); UREA NITROGEN, BLOOD 26 mg/dL (7-18)
[2017-06-01 10:44] LABS: ALANINE AMINOTRANSFERASE 13 U/L (12-78); ALBUMIN 1.8 g/dL (3.4-5.0); ALKALINE PHOSPHATASE 54 U/L (46-116); ASPARTATE AMINOTRANSFERASE 13 U/L (15-37); BILIRUBIN,DIRECT 0.1 mg/dL (0.0-0.2); BILIRUBIN,TOTAL 0.2 mg/dL (0.2-1.0); TOTAL PROTEIN, SERUM 5.4 g/dL (6.4-8.2); TROPONIN I < 0.017 ng/mL (0.00-0.056)
[2017-06-01 10:48] LABS: ABG BASE EXCESS 6.9 mmol/L; ABG OXYGEN SATURATION 97.8 % (92.0-98.5); ABG PCO2 42.3 mmHg (35.0-45.0); ABG PH 7.483 (7.350-7.450); ABG PO2 116.9 mmHg (75.0-100.0); COHb 0.2 % (0.5-1.5); MetHb 0.3 % (0.0-1.5); O2Hb 97.3 % (94.0-97.0); PEEP,BG 5 cm H2O; SITE, ABG Right Radial; VENT MODE, BG AC 16 500 50% +5; VT, ABG 500 mL
[2017-06-01 10:51] LABS: BAND % (MANUAL) 2 % (0.0-5.0); EOSINOPHILS % (MANUAL) 2 % (0-4); LYMPHOCYTES % (MANUAL) 15 % (16-48); MONOCYTES % (MANUAL) 11 % (0-11.0); NEUTROPHILS % (MANUAL) 69 (42-76); REACTIVE LYMPHOCYTES 1 % (0-0)
--- NOTE | 2017-06-01 10:56 | NUR ---
DR SPEARS WAS PAGED
--- NOTE | 2017-06-01 11:30 | NUR ---
VERIFIED Sandie MANRIQUEZ RN FOR VERSED
--- NOTE | 2017-06-01 12:29 | NUR ---
GAVE REPORT TO [facility] ICU DR SPEARS ADMITTING
--- NOTE | 2017-06-01 13:55 | NUR ---
ICU/RN-ADMITTED THIS 77 Y/O FEMALE FROM ER PER ACLS PROTOCOL. ROUTINE ICU ADMISSION CARE INITIATED. NURSING FOCUS:ALTERED RESPIRATORY STATUS, ALTERED CEREBRAL TISSUE PERFUSION R/T DIAGNOSIS. ON CONTINUOUS BAGGING VIA ETT, AND IMMEDIATELY HOOKED UP TO THE VENT BY RT. EKG SR, BP-92/53. ON VERSED DRIP AT 5MG/HR, W/ LIDIA. SOFT WRIST RESTRAINTS ON PER PROTOCOL.PT. IS A FULL CODE. WILL CONTINUE TO MONITOR CLOSELY PER PROTOCOL. AFEBRILE.
[2017-06-01] MEDS ORDERED: ACETAMINOPHEN 325 MG TABLET PO PRN (14:00)
--- NOTE | 2017-06-01 14:01 | NUR ---
PT RECEIVED ON VENT SUPPORT VIA 7.5 ET TUBE SECURED @# 23 CM LIPLINE. VENT PARAMETERS BELLOW SET ORDER: AC 16 VT 500ML FIO2 40% PEEP +5 VENT PLUGGED INTO RED OUTLET WITH ALARMS ON AND FUNCTIONING. TAYLER @ HOB. Addendum: 06/01/17 at 1557 by SUNNY GALLEGOS RT Amended: Links added.
[2017-06-01] MEDS: IV D5/ 0.9% NACL 1,000 ML IV PRN (14:06)
[2017-06-01] MEDS ORDERED: FEE PK DOSING 1 MIN EA MC ONE (14:14)
[2017-06-01] MEDS ORDERED: NOREPINEPHRINE 8 MG in IV D5W 500 ML IV PRN ×2 (14:30→15:30)
--- NOTE | 2017-06-01 14:30 | NUR ---
ICU/RN-PT.'S BP73/44, ORDER FOR PICC LINE INSERTION OBTAINED FROM DR. SPEARS, WITH PHONE CONSENT OBTAINED FROM DAUGHTER OBINNA. WILL NEED TO START PT. ON LEVOPHED DRIP.
[2017-06-01] MEDS: ENOXAPARIN SODIUM 40 MG/0.4 ML DISP.SYRIN SQ SCH (14:49)
[2017-06-01] MEDS ORDERED: IV NS 0.9% 500 ML IV ONE (15:00)
--- NOTE | 2017-06-01 15:00 | NUR ---
ICU/RN- DR. LIMON HERE TO SEE PT. W/ ORDERS TO GIVE NS 500ML IV BOLUS PLUS TO DC PEEP OF 5, RT NOTIFIED OF VENT CHANGES.
--- NOTE | 2017-06-01 15:13 | NUR ---
NO PEEP PER DR. LIMON. Addendum: 06/01/17 at 1513 by SUNNY GALLEGOS RT Amended: Links added.
--- NOTE | 2017-06-01 16:10 | NUR ---
ICU/RN- BP- REMAINS LOW 88/42, HR-58/MIN. LEVOPHED DRIP STARTED AT 2 MCG/KG/MIN. WILL TITRATE PER PROTOCOL.
[2017-06-01] MEDS: ZOSYN IVPB 3.375 G in IV D5W 50ml IV SCH ×2 (17:55→23:46)
[2017-06-01] MEDS ORDERED: PROPOFOL 10MG/ML 50ML 50 ML IV PRN (18:30)
--- NOTE | 2017-06-01 19:21 | NUR ---
ICU/RN- PT. REMAINS SEDATED W/ SAS OF 3, VERSED DRIP DC'D, DIPRIVAN DRIP STARTED AT 5MCG/KG/MIN. PER PROTOCOL.
--- NOTE | 2017-06-01 20:00 | NUR ---
ICU/RN- CONTINUE LEÓN ASSUME CARE OF THIS PT. ON THE VENT PER ETT, SATS.-99%, ON CONTINUOUS DIPRIVAN DRIP PER PROTOCOL, W/ SAS OF 3. W/ LIDIA. SOFT WRIST RESTRAINTS ON TO PREVENT SELF EXTUBATION.
[2017-06-01] MEDS: VANCOMYCIN 500 MG in IV D5W 100 ML IV SCH (21:46)
[2017-06-02] VITALS (53 sets, daily range): BP systolic 89–132; BP diastolic 34–71
[2017-06-02] MEDS: IV D5/ 0.9% NACL 1,000 ML IV PRN ×2 (01:20→12:16)
[2017-06-02] MEDS: ZOSYN IVPB 3.375 G in IV D5W 50ml IV SCH ×3 (05:43→17:03)
[2017-06-02 05:48] LABS: BASOPHILS % (AUTO) 0.3 % (0.0-2.0); EOSINOPHILS # (AUTO) 0.2 /CMM (0.0-0.7); EOSINOPHILS % (AUTO) 2.8 % (0.0-6.0); HEMATOCRIT 30 % (33-45); HEMOGLOBIN 10.1 g/dL (11.5-14.8); LYMPHOCYTES # (AUTO) 0.9 /CMM (0.8-4.8); LYMPHOCYTES % (AUTO) 13.6 % (20.0-44.0); MEAN CORPUSCULAR HEMOGLOBIN 33 PG (26.0-33.0); MEAN CORPUSCULAR HGB CONC 34 g/dl (31.0-36.0); MEAN CORPUSCULAR VOLUME 97 fL (82-100); MONOCYTES # (AUTO) 0.8 /CMM (0.1-1.30); MONOCYTES % (AUTO) 12.5 % (2.0-12.0); NEUTROPHILS # (AUTO) 4.7 /CMM (1.8-8.9); NEUTROPHILS % (AUTO) 70.8 % (43.0-81.0); PLATELET COUNT (AUTO) 151 /CMM (150-450); RDW COEFFICIENT OF VARIATION 13.7 (11.5-15.0); RED BLOOD CELL COUNT(AUTO) 3.04 MIL/uL (4.0-5.2); WHITE BLOOD COUNT (AUTO) 6.6 K/uL (4.3-11.0)
--- NOTE | 2017-06-02 06:12 | NUR ---
ICU/RN- REMAINS SEDATED ON DIPRIVAN GTT. AT 10MCG/KG/MIN. W/ LIDIA. SOFT WRIST RESTRAINTS ON TO PREVENT PT. FROM SELF EXTUBATION.ON THE VENT AC MODE. SATS.-98%, ON LEVOPHED DRIP AT 2MCG/MIN. LATEST BP-113/51. EKG SB W/ HR 55/MIN. NO S/S OF PAIN OR DISTRESS. AFEBRILE.
[2017-06-02 06:13] LABS: CARBON DIOXIDE 30 mmol/L (21-32); CHLORIDE 109 mmol/L (98-107); CREATININE 0.8 mg/dL (0.6-1.3); GLUCOSE 149 mg/dL (74-106); SODIUM SERUM 144 mmol/L (136-145); UREA NITROGEN, BLOOD 23 mg/dL (7-18)
--- NOTE | 2017-06-02 08:00 | NUR ---
RN NOTES SEDATION VACATION- DIPRIVAN TITRATED PER PROTOCOL, PT OFF SEDATION, ABLE TO COMMANDS, ABLE TO MOVE EXTREMITIES, PT REFUSING TO OPEN HER EYES. NOTED RESTLESS AND ATTEMPTS OF TAKING OUT TUBES. ORAL CARE PROVIDED, DIPRIVAN WILL BE RESTARTED PRN FOR PT COMFORT.
--- NOTE | 2017-06-02 08:25 | NUR ---
RN NOTES DR LIMON AT BEDSIDE, PT WAS SEEN AND EVALUATED. PT SB HR 47 BPM, MEDS, AND CURRENT LABS DISCUSSED WITH MD. PER STOP DIPRIVAN AND GIVE ATIVAN 1MG Q2H PRN. PER DR LIMON NO WEANING TODAY. WILL MONITOR PT CLOSELY. BILATERAL SOFT WRIST RESTRAINTS SECURED.
[2017-06-02] MEDS: VANCOMYCIN 500 MG in IV D5W 100 ML IV SCH ×2 (09:02→22:06)
[2017-06-02] MEDS: LORAZEPAM INJ 2 MG/ML VIAL IV PRN ×4 (09:02→18:53)
[2017-06-02] MEDS: PANTOPRAZOLE 40 MG VIAL IV SCH (09:02)
[2017-06-02] MEDS: ENOXAPARIN SODIUM 40 MG/0.4 ML DISP.SYRIN SQ SCH (09:27)
--- NOTE | 2017-06-02 12:57 | NUR ---
RN NOTES DR SPEARS AT BEDSIDE, PT WAS SEEN AND EVALUATED. VS AND CURRENT LABS DISCUSSED WITH MD. PT OFF DIPRIVAN, HR 57 BPM AT THIS TIME. LEVOPHED RUNNING@2MCG/MIN. NO NEW ORDERS RECEIVED AT THIS TIME.
--- NOTE | 2017-06-02 13:10 | NUR ---
RN NOTES LEVOPHED TURNED OFF BP STABLE AT THIS TIME: BP:113/71 HR:58 BPM. NO S/SX OF DISTRESS NOTED. TOLERATING CURRENT MECH VENT SETTINGS WELL. ATIVAN GIVEN PRN
[2017-06-02] MEDS: POTASSIUM CL. PREMIX PERIPHER. 50 ML IV SCH ×6 (14:05→18:41)
--- NOTE | 2017-06-02 19:43 | NUR ---
DIRECTOR PRODUCT MANAGEMENT RCD PT W/DX SEPSIS; PT OFF SEDATION D/T BRADYCARDIA PRN ATIVAN AVAILABLE. BL SOFT WRIST RESTRAINTS IN PLACE TO PREVENT SELF EXTUBATION. NSR ON MONITOR. INTUBATED 7.5 @ 23 W/VENT SETTINGS AC 16 500 40%; THIN WHITE SECRETIONS NOTED. RIGHT NARE NG TUBE CLAMPED. MALCOLM CATHETER W/MIN YELLOW URINE OUTPUT NOTED. CHANTEL PICC LINE PATENT AND WITH GOOD BLOOD RETURN; D5NS @ 100 ML/HR INFUSING.
[2017-06-03] VITALS (58 sets, daily range): BP systolic 86–133; BP diastolic 28–91
[2017-06-03] MEDS: ZOSYN IVPB 3.375 G in IV D5W 50ml IV SCH ×5 (00:30→23:51)
[2017-06-03] MEDS: IV D5/ 0.9% NACL 1,000 ML IV PRN ×2 (04:00→16:26)
[2017-06-03 05:23] LABS: BASOPHILS % (AUTO) 0.3 % (0.0-2.0); EOSINOPHILS # (AUTO) 0.3 /CMM (0.0-0.7); EOSINOPHILS % (AUTO) 3.8 % (0.0-6.0); HEMATOCRIT 32 % (33-45); LYMPHOCYTES % (AUTO) 15.1 % (20.0-44.0); MEAN CORPUSCULAR HEMOGLOBIN 33 PG (26.0-33.0); MEAN CORPUSCULAR HGB CONC 34 g/dl (31.0-36.0); MEAN CORPUSCULAR VOLUME 97 fL (82-100); MONOCYTES # (AUTO) 0.9 /CMM (0.1-1.30); MONOCYTES % (AUTO) 13.6 % (2.0-12.0); NEUTROPHILS # (AUTO) 4.7 /CMM (1.8-8.9); NEUTROPHILS % (AUTO) 67.2 % (43.0-81.0); PLATELET COUNT (AUTO) 138 /CMM (150-450); RDW COEFFICIENT OF VARIATION 14.4 (11.5-15.0); RED BLOOD CELL COUNT(AUTO) 3.32 MIL/uL (4.0-5.2)
[2017-06-03 05:45] LABS: CALCIUM, SERUM 8.2 mg/dL (8.5-10.1); CARBON DIOXIDE 25 mmol/L (21-32); CHLORIDE 111 mmol/L (98-107); CREATININE 0.8 mg/dL (0.6-1.3); GLUCOSE 104 mg/dL (74-106); MAGNESIUM 1.4 mg/dL (1.8-2.4); POTASSIUM 3.9 mmol/L (3.5-5.1); SODIUM SERUM 146 mmol/L (136-145); UREA NITROGEN, BLOOD 17 mg/dL (7-18)
--- NOTE | 2017-06-03 06:34 | NUR ---
TREATING MACHINE OPERATOR PT VSS; NO SEDATION GIVEN. PT TOLERATED BED BATH WELL.
--- NOTE | 2017-06-03 07:30 | NUR ---
RN NOTES RECEIVED PT IN BED, INTUBATED, ETT 7.5 23CM AT LIPLINE VENT SETTINGS: AC 16 TV 500 FIO2 40% PEEP 0. SUCTIONED FOR AIRWAY CLEARANCE. PT OFF SEDATION AND OFF LEVO. ONGOING D5NS@100ML/HR INFUSING ON CHANTEL PICCLINE. FC PATENT NOTED WITH MIN OUTPUT. DR SPEARS AWARE. B SOFT WRIST RESTRAINTS RELEASED AND CHECKED FOR CIRCULATION PER PROTOCOL. SAFETY MAINTAINED. REPOSITIONED FOR COMFORT. WILL CONT TO MONITOR
--- NOTE | 2017-06-03 07:44 | NUR ---
PATIENT RECEIVED ON MECHANICAL VENTILATION OF SETTINGS AC 16, 500, 40%. SUCTION DONE, ETT TUBE SECURED AND PATENT. ALARMS ON AND AUDIBLE. WILL MONITOR T/O SHIFT. Addendum: 06/03/17 at 1035 by MARILYN VICKERS RT Amended: Links added.
[2017-06-03] MEDS: ENOXAPARIN SODIUM 40 MG/0.4 ML DISP.SYRIN SQ SCH (08:39)
[2017-06-03] MEDS: PANTOPRAZOLE 40 MG VIAL IV SCH (08:40)
--- NOTE | 2017-06-03 09:30 | NUR ---
RN NOTES DR SPEARS AT BEDSIDE, CURRENT LABS AND VS DISCUSSED WITH MD. NO NEW ORDERS RECEIVED AT THIS TIME
--- NOTE | 2017-06-03 09:58 | NUR ---
RN NOTES DR LIMON AT BEDSIDE, PT OFF SEDATION, OFF LEVO. CURRENT LABS AND VS DISCUSSED WITH MD. PER DR LIMON, ASSESS NEURO STATUS, WHEN PT IS FULLY AWAKE. WILL HOLD ATIVAN PRN FOR NOW.
[2017-06-03 10:05] LABS: ABG BASE EXCESS 0.2 mmol/L; ABG OXYGEN SATURATION 96.6 % (92.0-98.5); ABG PCO2 35.3 mmHg (35.0-45.0); ABG PH 7.448 (7.350-7.450); ABG PO2 95.7 mmHg (75.0-100.0); AaDO2 148.9 mmHg; COHb 0.3 % (0.5-1.5); MetHb 0.3 % (0.0-1.5); PEEP,BG 0 cm H2O; SITE, ABG Right Radial
[2017-06-03] MEDS: VANCOMYCIN 500 MG in IV D5W 100 ML IV SCH ×2 (10:16→21:15)
--- NOTE | 2017-06-03 10:49 | NUR ---
RN NOTES PT NOTED WITH SOME AGITATION, SHE MOVES HER UPPER AND LOWER EXTREMITIES, DOESN'T TRACK AND DOESN'T FOLLOW COMMANDS AT THIS TIME. PT RESPONDS TO PAINFUL STIMULI. WILL MONITOR NEURO STATUS
[2017-06-03] MEDS: Magnesium 1GM/D5W 100ML PREMIX 100 ML IV SCH ×4 (11:58→14:35)
--- NOTE | 2017-06-03 18:27 | NUR ---
RN NOTES PT RESTING IN BED COMFORTABLY, INTUBATED TOLERATING [facility] SETT[facility]. PT MOVES HER UPPER AND LOWER EXTREMITIES BUT DOESN'T FOLLOW COMMANDS AT THIS TIME. WILL CONT TO MONITOR NEURO STATUS. VS STABLE. NO DISTRESS NOTED. IVF D5NS@100ML/HR INFUSING ON CHANTEL PICCLINE. ALL PORTS FLUSHING WELL. KEPT PT COMFORTABLE, TURNED AND REPOSITIONED Q2H. Z GUARD APPLIED PRN. MONITORED ACCORDINGLY.
--- NOTE | 2017-06-03 19:24 | NUR ---
Received pt on vent support, pt is stable on current vent settings no sob or distress noted, alarms are on and audible, ventilator in plugged into red outlet , ambu bag at bedside. Addendum: 06/03/17 at 1925 by ISABELLA GILMORE RT Amended: Links added.
--- NOTE | 2017-06-03 20:35 | NUR ---
received pt from day shift, lethargic/obtunded, does not follow commands, open eyes at times, able to move upper extremities, SR, on the vent, lungs diminished, no edema, NPO, NG clamped, f/c good output, v/s stable, no pain, pt turned and repositioned.
[2017-06-03] MEDS: Z GUARD REMEDY 2 OZ OINT TP SCH (21:16)
[2017-06-04] VITALS (87 sets, daily range): BP systolic 57–153; BP diastolic 21–115
--- NOTE | 2017-06-04 00:11 | NUR ---
pt is resting in the bed, v/s stable, no pain, pt turned and repositioned q2hrs.
--- NOTE | 2017-06-04 04:16 | NUR ---
pt is resting in the bed, lethargic, SR, SB, v/s stable, no pain, pt cleaned, changed and repositioned q2hrs.
[2017-06-04] MEDS: IV D5/ 0.9% NACL 1,000 ML IV PRN ×2 (04:30→16:40)
[2017-06-04] MEDS: ZOSYN IVPB 3.375 G in IV D5W 50ml IV SCH ×4 (05:07→23:09)
[2017-06-04 05:30] LABS: BASOPHILS % (AUTO) 0.6 % (0.0-2.0); EOSINOPHILS # (AUTO) 0.3 /CMM (0.0-0.7); EOSINOPHILS % (AUTO) 3.5 % (0.0-6.0); HEMATOCRIT 33 % (33-45); HEMOGLOBIN 11.4 g/dL (11.5-14.8); LYMPHOCYTES % (AUTO) 14.3 % (20.0-44.0); MEAN CORPUSCULAR HEMOGLOBIN 33 PG (26.0-33.0); MEAN CORPUSCULAR HGB CONC 34 g/dl (31.0-36.0); MEAN CORPUSCULAR VOLUME 96 fL (82-100); MONOCYTES # (AUTO) 1.1 /CMM (0.1-1.30); NEUTROPHILS # (AUTO) 4.9 /CMM (1.8-8.9); NEUTROPHILS % (AUTO) 66.6 % (43.0-81.0); PLATELET COUNT (AUTO) 130 /CMM (150-450); RDW COEFFICIENT OF VARIATION 13.3 (11.5-15.0); RED BLOOD CELL COUNT(AUTO) 3.46 MIL/uL (4.0-5.2); WHITE BLOOD COUNT (AUTO) 7.3 K/uL (4.3-11.0)
[2017-06-04 05:59] LABS: CALCIUM, SERUM 8.4 mg/dL (8.5-10.1); CARBON DIOXIDE 25 mmol/L (21-32); CHLORIDE 108 mmol/L (98-107); CREATININE 0.7 mg/dL (0.6-1.3); GLUCOSE 112 mg/dL (74-106); POTASSIUM 3.7 mmol/L (3.5-5.1); SODIUM SERUM 141 mmol/L (136-145); UREA NITROGEN, BLOOD 13 mg/dL (7-18)
--- NOTE | 2017-06-04 08:05 | NUR ---
INITIAL NATURAL GAS FIELD PROCESSING SUPERVISOR NOTE RCVD PT LETHARGIC, UNABLE TO FOLLOW SIMPLE COMMANDS SUCH TO OPEN EYES OR SQUEEZE FINFERS WITH HAND, BILATERAL WRIST RESTRAINTS IN PLACE. CIRCULATION CHECKS DONE. SR ON TELE. PT INTUBATED ETT 7.5 23 AT LIP TOLERATING ORDERED VENT SETTINGS WELL. RIGHT NG TUBE CLAMPED, PLACEMENT VERIFIED BY AUSCULTATION/ASPIRATION. MALCOLM TO GRAVITY DRAINING CLOUDY, YELLOW URINE. CHANTEL PICC C/D/I/PATENT. NO S/O INFILTRATION/PHLEBITIS OBSERVED UPON FLUSHING. IVF INFUSING. WILL CONTINUE TO MONITOR PT FOR SAFETY AND COMFORT. CALL LIGHT WITHIN REACH. BED IN LOW AND LOCKED POSITION.
[2017-06-04] MEDS: PANTOPRAZOLE 40 MG VIAL IV SCH (08:15)
[2017-06-04] MEDS: Z GUARD REMEDY 2 OZ OINT TP SCH ×2 (08:15→21:35)
[2017-06-04] MEDS: ENOXAPARIN SODIUM 40 MG/0.4 ML DISP.SYRIN SQ SCH (08:16)
--- NOTE | 2017-06-04 09:43 | NUR ---
RT PT RECEIVED INTUBATED WITH 7.5 ETT, 23 CM AT THE LIP. PT ON [facility] VENT WITH SETTINGS PER MD ORDER. ETT SECURED WITH ANCHOR FAST. WRAPPER LEAF INSPECTOR DONE. BILATERAL BREATH SOUNDS ON AUSCULTATION. ALARMS ON AND FUNCTIONING PROPERLY. VENT PLUGGED INTO RED OUTLET. SUCTIONED SMALL AMOUNTS OF BLOOD-TINGED SECRETIONS. AMBU BAG AT HEAD OF BED. NO SOB OR SIGNS OF DISTRESS NOTED AT THIS TIME. WILL CONTINUE TO MONITOR THE PATIENT FOR ANY CHANGES. Addendum: 06/04/17 at 1830 by DAVION DOOLEY RT Amended: Links added.
[2017-06-04] MEDS: VANCOMYCIN 500 MG in IV D5W 100 ML IV SCH ×2 (11:55→21:34)
--- NOTE | 2017-06-04 13:10 | NUR ---
BOILER RIVETER NOTE DR. SPEARS IN UNIT UPDATED ON PT'S CONDITION, RECOMMENDED TO START G-TUBE FEEDING PER INDUCTOR TESTER'S RECOMMENDATION. Addendum: 06/04/17 at 1915 by DARLEEN BURKS RN ADDENDUM DR. SPEARS MADE AWARE OF PT'S LOW URINARY OUTPUT SINCE THIS AM. WILL CONTINUE TO MONITOR
[2017-06-04] MEDS: FIBERSOURCE HN 1,000 ML BOTTLE GT PRN (13:40)
[2017-06-04] MEDS: LORAZEPAM INJ 2 MG/ML VIAL IV PRN (14:33)
--- NOTE | 2017-06-04 16:12 | NUR ---
BEAD STRINGER NOTE PT TOLERATING ORDERED TUBE FEEDING AT 25 ML/HR, NO RESIDUAL OBTAINED INCREASED TO GOAL RATE OF 50 ML/HR. WILL CONTINUE TO MONITOR.
--- NOTE | 2017-06-04 18:41 | NUR ---
BANKING REPRESENTATIVE NOTE PT REMAINS LETHARGIC, TOLERATING ORDERED VENT SETTINGS, SR/SB ON TELE. RIGHT NG TUBE TOLERATING TUBE FEED AT GOAL RATE. NO RESIDUAL OBTAINED. MALCOLM TO GRAVITY DRAINING CLOUDY, YELLOW URINE. CHANTEL PICC C/D/I/PATENT. IVF INFUSING NO S/O INFILTRATION/PHLEBITIS OBSERVED. PT'S CARE ENDORSED TO SOLDERING MACHINE TENDER RN FOR CONTINUITY OF CARE. PT'S DAUGHTER, KEYLA AT BEDSIDE UPDATED ON PT'S CONDITION.
--- NOTE | 2017-06-04 19:55 | NUR ---
Received pt on vent support, pt stable , no sob or distress noted om current settings, alarms on and audible, ventilator is plugged into red outlet, ambu bag at bedside. Addendum: 06/04/17 at 1955 by ISABELLA GILMORE RT Amended: Links added.
--- NOTE | 2017-06-04 20:18 | NUR ---
received pt from day shift, lethargic, does not follow commands, able to move UE, SR, on the vent, lungs diminished, f/c OK output, NG to feeding tolerates well, restraints on, v/s stable,no pain, pt turned and repositioned, family at the bed side.
[2017-06-05] VITALS (55 sets, daily range): BP systolic 72–157; BP diastolic 38–112
--- NOTE | 2017-06-05 00:09 | NUR ---
pt is resting in the bed, v/s stable, no pain, pt turned and repositioned q2hrs.
--- NOTE | 2017-06-05 04:12 | NUR ---
pt is resting in the bed, no acute distress overnight, lethargic, v/s stable, no pain, pt cleaned, changed and repositioned q2hrs.
[2017-06-05] MEDS: FIBERSOURCE HN 1,000 ML BOTTLE GT PRN (04:29)
[2017-06-05] MEDS: IV D5/ 0.9% NACL 1,000 ML IV PRN ×2 (04:29→18:04)
[2017-06-05] MEDS: ZOSYN IVPB 3.375 G in IV D5W 50ml IV SCH ×3 (05:12→17:32)
[2017-06-05 05:13] LABS: CALCIUM, SERUM 7.8 mg/dL (8.5-10.1); CARBON DIOXIDE 25 mmol/L (21-32); CHLORIDE 112 mmol/L (98-107); CREATININE 0.7 mg/dL (0.6-1.3); GLUCOSE 149 mg/dL (74-106); POTASSIUM 3.1 mmol/L (3.5-5.1); SODIUM SERUM 144 mmol/L (136-145); UREA NITROGEN, BLOOD 13 mg/dL (7-18)
[2017-06-05] MEDS: LORAZEPAM INJ 2 MG/ML VIAL IV PRN (05:58)
[2017-06-05] MEDS: MORPHINE SULFATE INJ 4 MG/ML DISP.SYRIN IV PRN ×3 (07:27→18:18)
--- NOTE | 2017-06-05 07:53 | NUR ---
INITIAL DIRECTOR OF SUSTAINABILITY NOTE RCVD PT WITH EYES CLOSED, PT OPENS EYES TO NAME AND ABLE TO FOLLOW SIMPLE COMMANDS SUCH WIGGLE TOES, SQUEEZE HAND, AND CLOSE EYES SHUT. REMAINS INTUBATED OFF SEDATION. TOLERATING ORDERED VENT SETTINGS WELL. SR ON TELE. RIGHT NG TUBE PLACEMENT VERIFIED BY AUSCULTATION/ASPIRATION. TOLERATING TUBE FEEDING RATE. NO RESIDUAL OBTAINED. MALCOLM TO GRAVITY DRAINING CLOUDY, YELLOW URINE. CHANTEL PICC C/D/I/PATENT. NO S/O INFILTRATION/PHLEBITIS OBSERVED IVF INFUSING. WILL CONTINUE TO MONITOR PT FOR SAFETY AND COMFORT. CALL LIGHT WITHIN REACH. BED IN LOW AND LOCKED POSITION.
[2017-06-05] MEDS: PANTOPRAZOLE 40 MG VIAL IV SCH (08:04)
[2017-06-05] MEDS: PROSOURCE / PROSTAT (PYXIS) 30 ML UDC GT SCH (08:04)
[2017-06-05] MEDS: Z GUARD REMEDY 2 OZ OINT TP SCH ×2 (08:05→22:10)
[2017-06-05] MEDS: ENOXAPARIN SODIUM 40 MG/0.4 ML DISP.SYRIN SQ SCH (08:07)
[2017-06-05 08:37] LABS: EOSINOPHILS # (AUTO) 0.2 /CMM (0.0-0.7); EOSINOPHILS % (AUTO) 3.1 % (0.0-6.0); HEMATOCRIT 28 % (33-45); HEMOGLOBIN 9.4 g/dL (11.5-14.8); LYMPHOCYTES # (AUTO) 0.7 /CMM (0.8-4.8); LYMPHOCYTES % (AUTO) 10.7 % (20.0-44.0); MEAN CORPUSCULAR HEMOGLOBIN 33 PG (26.0-33.0); MEAN CORPUSCULAR HGB CONC 34 g/dl (31.0-36.0); MEAN CORPUSCULAR VOLUME 97 fL (82-100); MONOCYTES % (AUTO) 15.1 % (2.0-12.0); NEUTROPHILS # (AUTO) 4.9 /CMM (1.8-8.9); NEUTROPHILS % (AUTO) 71.1 % (43.0-81.0); PLATELET COUNT (AUTO) 121 /CMM (150-450); RDW COEFFICIENT OF VARIATION 13.7 (11.5-15.0); RED BLOOD CELL COUNT(AUTO) 2.86 MIL/uL (4.0-5.2); WHITE BLOOD COUNT (AUTO) 6.9 K/uL (4.3-11.0)
[2017-06-05] MEDS: VANCOMYCIN 500 MG in IV D5W 100 ML IV SCH ×2 (09:29→21:56)
[2017-06-05] MEDS: POTASSIUM CL. PREMIX PERIPHER. 50 ML IV SCH ×3 (09:43→12:19)
--- NOTE | 2017-06-05 11:55 | NUR ---
WATER INSPECTOR NOTE PT TOLERATING WELL SIMV MODE, VITAL SIGNS REMAIN STABLE. PER DR. LIMON PT OK TO BE EXTUBATED. WILL CONTINUE TO MONITOR DR. SPEARS IN UNIT EARLIER THIS AM INFORMED THAT PT HAS HOME MEDICATIONS THAT HAVE NOT BEEN CONTINUED YET. HE STATED THAT WILL REVIEW MEDICATIONS AND ORDER NEEDED.
[2017-06-05 12:34] LABS: ABG BASE EXCESS 0.4 mmol/L; ABG OXYGEN SATURATION 97.9 % (92.0-98.5); ABG PCO2 44.9 mmHg (35.0-45.0); ABG PH 7.378 (7.350-7.450); ABG PO2 134.4 mmHg (75.0-100.0); AaDO2 99.2 mmHg; COHb 0.3 % (0.5-1.5); MetHb 0.3 % (0.0-1.5); O2Hb 97.3 % (94.0-97.0); PEEP,BG 5 cm H2O; SITE, ABG Right Radial
[2017-06-05] MEDS ORDERED: ALBUTEROL HALF STRENGTH 1.25 MG/3 ML VIAL.NEB NEB SCH (14:00)
--- NOTE | 2017-06-05 14:02 | NUR ---
LPN MEDICAL ASSISTANT NOTE PT TOLERATED EXTUBATION WELL, CURRENTLY ON NC 4L TOLERATING WELL. PT UNABLE TO CLEAR SECRETIONS, ORAL AND NG SUCTION IN PLACE.
[2017-06-05] MEDS: IPRATROPIUM NEB FS 0.5 MG/2.5 ML AMPUL.NEB NEB SCH ×3 (16:02→23:58)
--- NOTE | 2017-06-05 16:05 | NUR ---
LANE ATTENDANT NOTE PT IN DISTRESS, LABORED BREATHING, USING ACCESSORY MUSCLES. RT CALLED TO BEDSIDE, DR LIMON AND MIGUELINA SAXENA IN UNIT INFORMED. PT'S DAUGHTER KEYLA CALLED PT NEEDS TO BE RE-INTUBATED. DR. LIMON SPEAKING WITH KEYLA REGARDING PT'S PROGNOSIS AND NEED FOR INTUBATION AT THIS TIME. WILL F/U.
--- NOTE | 2017-06-05 16:15 | NUR ---
PT IN MARKED DISTRESS WITH STRIDOR, STERNAL AND TRACHEAL RETRACTIONS AND MINIMALLY RESPONSIVE. DR LIMON IN TO EXAMINE AND DAUGHTER KEYLA CALLED TO ATTEND STAT. DECISION BETWEEN DAUGHTER KEYLA AND DR LIMON FOR DO NOT INTUBATE, STAT RACEMIC EPI INHALED, DECADRON 10 MG IVP AND MORPHINE 2 MG IVP.
[2017-06-05] MEDS ORDERED: RACEPINEPHRINE HCL 2.25% NEB 0.5 ML VIAL.NEB IH ONE (16:20)
[2017-06-05] MEDS ORDERED: DEXAMETHASONE SOD PHOSPHATE 10 MG/ML VIAL ONE (16:21)
[2017-06-05] MEDS ORDERED: RACEPINEPHRINE HCL 2.25% NEB 0.5 ML VIAL.NEB IH PRN (16:30)
[2017-06-05] MEDS ORDERED: DEXAMETHASONE SOD PHOSPHATE 4 MG/ML VIAL IV ONE (16:30)
[2017-06-05] MEDS ORDERED: MORPHINE SULFATE INJ 4 MG/ML DISP.SYRIN IV ONE (16:30)
--- NOTE | 2017-06-05 16:30 | NUR ---
DAUGHTER KEYLA AT BEDSIDE AND WANTS FULL COMFORT CARE BUT DECLINES TO ADVISE HER TWO SISTERS OF SITUATION. I ASKED KEYLA TO CALL EACH SISTER STAT. DR LIMON AGAIN SPOKE TO KEYLA AT BEDSIDE. DR SPEARS CALLED FOR INPUT REGARDING SITUATION MRS POLK IS HIS PT.
--- NOTE | 2017-06-05 16:35 | NUR ---
I SPOKE WITH DR SPEARS TELEPHONICALLY. DR Franco ADVISES US TO CALL EACH DAUGHTER STAT TO CLARIFY EACH DAUGHTER'S WISHES MD HAS NEVER MET THE DAUGHTERS AND MD WILL NOT PROCEED WITH COMFORT CARE UNTIL ALL CHILDREN CAN BE SPOKEN WITH. DR LIMON IS HERE IN ICU AND SPOKE WITH KEYLA IN PERSON AND OBINNA TELEPHONICALLY WHO BOTH AGREE WITH DNI/DNR AND COMFORT CARE. EACH SISTER STATES THAT THE THIRD SISTER HAS "CUT OFF HER PHONE". WE HAVE INSTRUCTED OBINNA AND KEYLA TO TRY AND REACH THEIR SISTER STAT.
--- NOTE | 2017-06-05 17:25 | NUR ---
AFTER MULTIPLE D/W DR LIMON AND DAUGHTER KEYLA AT BEDSIDE AND OBINNA BY PHONE INSTRUCTIONS FOR DNI/DNR AND CONTINUE FULL RX
--- NOTE | 2017-06-05 18:55 | NUR ---
# 3 DAUGHTER ROGER CALLED AND AGREES WITH DNI/DNR STATUS. I INFORMED EACH DAUGHTER THAT IF PT SURVIVES THE NIGHT THEN EACH CAN INSTRUCT MDS TOMORROW REGARDING COMFORT FOCUSSED CARE
--- NOTE | 2017-06-05 19:00 | NUR ---
SOLAR SALES REP NOTES Received patient lethargic but opens eyes to name calling and touch,non verbal,does not follow commands,on NRM 100%(15 liters O2),with deep ,labored breathing. PICC line via CHANTEL.Patient is DNR,extubated today. 2199 Comfort care done.
--- NOTE | 2017-06-05 19:07 | NUR ---
KNOTTING MACHINE OPERATOR NOTE PT UNSTABLE, LABORED BREATHING THROUGH NRB MASK, DNR/DNI AT THIS TIME. SR ON TELE. PT'S DAUGHTER KEYLA AT BEDSIDE. PT'S CARE ENDORSED TO CNC TECHNICIAN RN FOR CONTINUITY OF CARE. BED IN LOW AND LOCKED POSITION.
[2017-06-05] MEDS: ALBUTEROL HALF STRENGTH 1.25 MG/3 ML VIAL.NEB NEB SCH ×2 (19:17→23:57)
[2017-06-05] MEDS: DEXAMETHASONE SOD PHOSPHATE 4 MG/ML VIAL IV SCH (22:01)
[2017-06-06] VITALS (35 sets, daily range): BP systolic 101–160; BP diastolic 36–114
--- NOTE | 2017-06-06 | NUR ---
INVESTMENT PROFESSIONAL NOTES Seems more alert,and responsive,getting a little restless,moving both arms up and down and accidentally pulled NGT,and mask off.Patient easily desaturates when O2 mask is off. 0200 Attempted to re insert NGT patient fighting a lot. Has a lot ot thick secretions ,suctioned a lot of thick blood tinged secretions. 0400 Am bath done,No BM,skin remains intact. 0600 Alert,trying to talk,responding to verbal conversation.
[2017-06-06] MEDS: ZOSYN IVPB 3.375 G in IV D5W 50ml IV SCH ×5 (01:17→23:30)
[2017-06-06] MEDS: MORPHINE SULFATE INJ 4 MG/ML DISP.SYRIN IV PRN ×7 (01:48→23:26)
[2017-06-06] MEDS: IPRATROPIUM NEB FS 0.5 MG/2.5 ML AMPUL.NEB NEB SCH ×6 (02:44→23:34)
[2017-06-06] MEDS: ALBUTEROL HALF STRENGTH 1.25 MG/3 ML VIAL.NEB NEB SCH ×6 (02:44→23:34)
[2017-06-06] MEDS: DEXAMETHASONE SOD PHOSPHATE 4 MG/ML VIAL IV SCH ×4 (04:34→22:13)
[2017-06-06 05:48] LABS: CALCIUM, SERUM 8.4 mg/dL (8.5-10.1); CARBON DIOXIDE 26 mmol/L (21-32); CHLORIDE 109 mmol/L (98-107); CREATININE 0.7 mg/dL (0.6-1.3); GLUCOSE 183 mg/dL (74-106); MAGNESIUM 1.5 mg/dL (1.8-2.4); SODIUM SERUM 143 mmol/L (136-145); UREA NITROGEN, BLOOD 14 mg/dL (7-18)
[2017-06-06] MEDS: IV D5/ 0.9% NACL 1,000 ML IV PRN ×2 (07:32→22:32)
--- NOTE | 2017-06-06 07:45 | NUR ---
PT AWAKE. STRIDOR RESOLVED BUT VERY WEAK CONGESTED COUGH THAT PT CANNOT EXPECTORATE. NORMOTENSIVE. NSE. SPO2 > 93% ON NRB MASK
--- NOTE | 2017-06-06 08:30 | NUR ---
DAUGHTERS ONCE AGAIN NOT IN UNISON REGARDING COMFORT CARE VERSUS FULL AGGRESSIVE CARE. ALL THREE DAUGHTERS AGREE ON DNI/DNR. WILL GIVE AN OCCAS DOSE OF MORPHINE 2 MG IVP PER DAUGHTER KEYLA AND PER PT WHO GRIMACES AND C/O PAIN.
[2017-06-06] MEDS: PROSOURCE / PROSTAT (PYXIS) 30 ML UDC GT SCH (08:53)
[2017-06-06] MEDS: PANTOPRAZOLE 40 MG VIAL IV SCH (08:54)
[2017-06-06] MEDS: ENOXAPARIN SODIUM 40 MG/0.4 ML DISP.SYRIN SQ SCH (09:05)
[2017-06-06] MEDS: Z GUARD REMEDY 2 OZ OINT TP SCH ×2 (09:07→20:46)
[2017-06-06] MEDS: VANCOMYCIN 500 MG in IV D5W 100 ML IV SCH ×2 (10:03→22:13)
--- NOTE | 2017-06-06 11:15 | NUR ---
VERY CONGESTED AIRWAY REQUIRES HHN AND N-T SUCTION-THICK BLOOD TINGED MUCOUS. UNABLE TO TOÑITO CHANGE TO N/C SPO2 DOWN TO 84%. BACK ON NRB WITH SPO2 98%
[2017-06-06] MEDS: Magnesium 1GM/D5W 100ML PREMIX 100 ML IV SCH ×2 (12:19→13:40)
--- NOTE | 2017-06-06 12:30 | NUR ---
D/W YUNIOR SHEIKH AND DR LIMON. NO CHANGE IN LEVEL OF CARE-FULL AGGRESSIVE CARE WITH DNI/DNR STATUS
[2017-06-06] MEDS: POTASSIUM CL. PREMIX PERIPHER. 50 ML IV SCH ×6 (12:59→19:04)
[2017-06-06] MEDS ORDERED: OLANZAPINE 5 MG/TAB.RAPDIS SL ONE (14:00)
--- NOTE | 2017-06-06 15:54 | NUR ---
MALCOLM CATH LEAKING AND CHANGED ASEPTICALLY TO #16 FR
[2017-06-06] MEDS: LACTOBACILLUS RHAMNOSUS GG 1 EACH CAP.SPRINK PO SCH (17:00)
--- NOTE | 2017-06-06 18:18 | NUR ---
PT REMAINS CONGESTED AND LABORED AND RESTLESS. SPEAKS ABOUT "PAIN" AND CRIES. DIFFICULT TO TELL ORIGIN OF PAIN. WHEN PT REMOVES MASK THE SPO2 DROPS TO 80%. MORPHINE 2 MG IVP GIVEN APPROX Q 3H PER EMAR WITH TEMPORARY RELIEF. ONGOING DIFFICULT COMMUNICATION WITH DAUGHTERS WHO EACH SEEM UNWILLING OR UNABLE TO UNDERSTAND MEDICAL UPDATES OR AGGRESSIVENESS OF CARE OPTIONS AND CHANGE THEIR MINDS FREQUENTLY AND DO NOT AGREE WITH EACH OTHER REGARDING RX. EACH DAUGHTER DOES AGREE WITH DNI/DNR CODE STATUS
--- NOTE | 2017-06-06 19:30 | NUR ---
STOPPER GRINDER INITIAL NOTE PT RECEIVED AWAKE IN BED. HOB ELEVATED. NOTED WITH MUMBLING AND RESTLESSNESS. ON NONREBREATHER 15LPM AND SATURATING 94%. BREATHING WITH SLIGHT RETRACTION NOTED AND DIMINISHED LUNG SOUNDS BILATERALLY. ON ASPIRATION PRECAUTIONS. IV CHANTEL PICC CLEAN, DRY, PATENT WITH FLUIDS INFUSING. MALCOLM CATHETER IN PLACE AND DRAINING BY GRAVITY. REMAINS NPO AT THIS TIME. TELE- SINUS RHYTHM 84. INFORMED THROUGH ENDORSEMENT PT IS DNR/DNI WITH FULL AGGRESSIVE TREATMENT. WILL CONTINUE TO MONITOR.
[2017-06-07] VITALS (30 sets, daily range): BP systolic 102–160; BP diastolic 44–89
--- NOTE | 2017-06-07 00:15 | NUR ---
PUBLIC AFFAIRS DIRECTOR NOTE PT NOTED RESTLESS AND REMOVING NONREBREATHER MASK AND DESATURATING TO 80%. ALSO NOTED WITH INCREASED AGITATION AND ALSO REMOVING TELEMONITOR. SPOKE WITH MANAGER TRANSMISSION DR. LAWRENCE WITH ORDER FOR BILATERAL SOFT WRIST RESTRAINTS. WILL CONTINUE TO MONITOR.
[2017-06-07] MEDS: MORPHINE SULFATE INJ 4 MG/ML DISP.SYRIN IV PRN ×3 (02:07→07:45)
[2017-06-07] MEDS: ALBUTEROL HALF STRENGTH 1.25 MG/3 ML VIAL.NEB NEB SCH ×5 (03:32→19:55)
[2017-06-07] MEDS: IPRATROPIUM NEB FS 0.5 MG/2.5 ML AMPUL.NEB NEB SCH ×5 (03:32→19:55)
[2017-06-07] MEDS: DEXAMETHASONE SOD PHOSPHATE 4 MG/ML VIAL IV SCH ×4 (04:01→21:05)
[2017-06-07] MEDS: ZOSYN IVPB 3.375 G in IV D5W 50ml IV SCH ×4 (05:07→23:38)
[2017-06-07 05:09] LABS: HEMATOCRIT 30 % (33-45); LYMPHOCYTES # (AUTO) 0.5 /CMM (0.8-4.8); LYMPHOCYTES % (AUTO) 2.6 % (20.0-44.0); MEAN CORPUSCULAR HEMOGLOBIN 33 PG (26.0-33.0); MEAN CORPUSCULAR HGB CONC 33 g/dl (31.0-36.0); MEAN CORPUSCULAR VOLUME 97 fL (82-100); MONOCYTES # (AUTO) 1.3 /CMM (0.1-1.30); MONOCYTES % (AUTO) 7.2 % (2.0-12.0); NEUTROPHILS # (AUTO) 16.9 /CMM (1.8-8.9); NEUTROPHILS % (AUTO) 90.2 % (43.0-81.0); PLATELET COUNT (AUTO) 256 /CMM (150-450); RED BLOOD CELL COUNT(AUTO) 3.07 MIL/uL (4.0-5.2); WHITE BLOOD COUNT (AUTO) 18.8 K/uL (4.3-11.0)
[2017-06-07 05:27] LABS: CALCIUM, SERUM 8.9 mg/dL (8.5-10.1); CARBON DIOXIDE 29 mmol/L (21-32); CHLORIDE 110 mmol/L (98-107); CREATININE 0.8 mg/dL (0.6-1.3); GLUCOSE 141 mg/dL (74-106); MAGNESIUM 1.9 mg/dL (1.8-2.4); PHOSPHORUS 2.4 mg/dL (2.5-4.9); POTASSIUM 3.9 mmol/L (3.5-5.1); SODIUM SERUM 146 mmol/L (136-145); UREA NITROGEN, BLOOD 12 mg/dL (7-18)
[2017-06-07 06:10] LABS: LYMPHOCYTES % (MANUAL) 1 % (16-48); MONOCYTES % (MANUAL) 9 % (0-11.0); NEUTROPHILS % (MANUAL) 90 (42-76)
--- NOTE | 2017-06-07 07:12 | NUR ---
AUTOMATION SOFTWARE ENGINEER INITIAL NOTES: REC'D PT AWAKE ON BED, IN DISTRESS WHILE ON NON REBREATHER MASK AT 15LPM, SATING AT 88%, RR 36 BPM. ON TELEMONITOR, ST W/ HR 112 BPM. HAS CHANTEL PICC LINE TLC, PL, PATENT & INTACT W/ NO S/SX OF INFECTION/INFILTRATION NOTED W/ D5NS X 100 CC/HR INFUSING WELL. HAS FC PATENT & INTACT. PROVIDED COMFORT & SAFETY MEASURES. BED KEPT LOW & IN LOCKED POS. CALL LIGHT PLACED W/IN REACH. WILL CONTINUE TO MONITOR AND ATTEND PT NEEDS.
--- NOTE | 2017-06-07 07:27 | NUR ---
CLERICAL INVESTIGATOR CLOSING NOTE PT REMAINED STABLE DURING SHIFT. NO ACUTE DISTRESS NOTED. KEPT CLEAN AND DRY. REPOSITIONED Q2H. ALL NEEDS ATTENDED TO PROMPTLY. HOB ELEVATED. WILL ENDORSE TO NEXT SHIFT FOR CONTINUITY OF CARE.
--- NOTE | 2017-06-07 08:00 | NUR ---
RN NOTES: ABG DONE. RESULTS RELAYED TO DR. LIMON W/ ORDERS TO PUT ON BIPAP, I:E 09/10, RR 12. RT EVER MADE AWARE.
[2017-06-07 08:31] LABS: ABG BASE EXCESS -0.9 mmol/L; ABG OXYGEN SATURATION 88.7 % (92.0-98.5); ABG PCO2 77.9 mmHg (35.0-45.0); ABG PH 7.187 (7.350-7.450); ABG PO2 61.2 mmHg (75.0-100.0); AaDO2 573.9 mmHg; COHb 0.3 % (0.5-1.5); MetHb 0.5 % (0.0-1.5); SITE, ABG Right Radial
--- NOTE | 2017-06-07 08:50 | NUR ---
PT. PLACED ON BIPAP POST ABG PER DR. LIMON ORDER Addendum: 06/07/17 at 1847 by EVER CORBETT RT Amended: Links added.
[2017-06-07] MEDS: PROSOURCE / PROSTAT (PYXIS) 30 ML UDC GT SCH (09:00)
[2017-06-07] MEDS: LACTOBACILLUS RHAMNOSUS GG 1 EACH CAP.SPRINK PO SCH ×2 (09:00→17:00)
[2017-06-07] MEDS: Z GUARD REMEDY 2 OZ OINT TP SCH ×2 (09:15→20:46)
[2017-06-07] MEDS: PANTOPRAZOLE 40 MG VIAL IV SCH (09:15)
[2017-06-07] MEDS: ENOXAPARIN SODIUM 40 MG/0.4 ML DISP.SYRIN SQ SCH (09:18)
--- NOTE | 2017-06-07 10:20 | NUR ---
RN NOTES: PT SEEN & EXAMINED BY DR. LIMON. ABG DONE WHILE PT ON BIPAP, RESULTS REVIEWED BY DR. LIMON W/ NO NEW ORDERS.
[2017-06-07] MEDS: VANCOMYCIN 500 MG in IV D5W 100 ML IV SCH ×2 (10:26→21:06)
[2017-06-07] MEDS: IV D5/ 0.9% NACL 1,000 ML IV PRN (10:37)
[2017-06-07 11:11] LABS: ABG BASE EXCESS 1.1 mmol/L; ABG OXYGEN SATURATION 97.1 % (92.0-98.5); ABG PCO2 52.7 mmHg (35.0-45.0); ABG PH 7.335 (7.350-7.450); ABG PO2 104.9 mmHg (75.0-100.0); AaDO2 555.4 mmHg; COHb 0.2 % (0.5-1.5); MetHb 0.7 % (0.0-1.5); O2Hb 96.2 % (94.0-97.0)
[2017-06-07 11:17] LABS: SITE, ABG Right Femoral; VENT MODE, BG ST 18/5
--- NOTE | 2017-06-07 11:36 | NUR ---
RN NOTES: PT SEEN & EXAMINED BY KAYLEY MOJICA. Addendum: 06/07/17 at 1513 by DONA CAZARES RN ADDENDUM: BRANDON KAUR TO KEEP PRN MORPHINE 2 MG AND 4 MG Q1H RESPECTIVELY.
[2017-06-07] MEDS ORDERED: FUROSEMIDE 20 MG/2 ML VIAL IV ONE (12:00)
[2017-06-07] MEDS: OLANZAPINE 5 MG/TAB.RAPDIS SL SCH (12:31)
[2017-06-07] MEDS ORDERED: NEUTRA PHOS 1 POWD.PACKET NG ONE ×2 (14:00→17:30)
[2017-06-07] MEDS ORDERED: POTASSIUM PHOSPHATE MM 7.5 MMOL in IV D5W 100 ML IV SCH (17:30)
--- NOTE | 2017-06-07 18:46 | NUR ---
RT END OF THE SHIFT REPORT PT. 77 Y OLD FEMALE REMAIN ON BIPAP WITH SETTINGS, ALARMS ARE SET AND FUNCTIONAL. B/S RALES/BILATERALLY AND EQUAL CHEST RISE NOTED BIPAP PLUGGED INTO RED OUTLET AND NO DISTRESS NOTED T/O SHIFT AND AMBU BAG REMAIN AT THE BEDSIDE. REPORT WILL BE PASS TO PM SHIFT. Addendum: 06/07/17 at 1847 by EVER CORBETT RT Amended: Links added.
--- NOTE | 2017-06-07 18:48 | NUR ---
PATIENT SERVICES REPRESENTATIVE CLOSING NOTES: PT NOW ON BIPAP, SATING AT 98%. ON TELEMONITOR, NOW SR. CHANTEL PICC LINE TLC, SL, KEPT PATENT & INTACT W/ NO S/SX OF INFECTION/INFILTRATION NOTED. FC KEPT PATENT & INTACT. STILL ON BILATERAL WRIST RESTRAINTS D/T PULLING OUT OF TUBES. KEPT WELL RESTED. NEEDS ATTENDED. BED KEPT LOW & IN LOCKED POS. CALL LIGHT PLACED W/IN REACH. WILL ENDORSE TO PM RN FOR RHONDA.
--- NOTE | 2017-06-07 19:45 | NUR ---
FOREST FIRE PREVENTION MANAGER INITIAL NOTE RECEIVED PT AWAKE AND OPEN EYES WITH HOB ELEVATED. BIPAP IN PLACE WITH SETTINGS WELL TOLERATED AND SATURATING 99%. NOTED TO BE RESTLESS, MOVING HEAD AT TIMES AND BITING ON THE BOTTOM OF THE BIPAP MASK. NO FACIAL GRIMACE NOTED. BREATHING SLIGHTLY LABORED. BILATERAL SOFT WRIST RESTRAINTS IN PLACE WITH NO NOTED DISCOLORATION. RADIAL PULSES PALPABLE AND CAP REFILL CHECKED. NPO MAINTAINED. IV CHANTEL PICC INTACT, PATENT AND FLUSHING WELL. MALCOLM CATHETER IN PLACE AND DRAINING BY GRAVITY. WILL CONTINUE TO MONITOR.
--- NOTE | 2017-06-07 20:00 | NUR ---
RT PT WAS FOUND ON BIPAP WITH NOTED SETTING. WHILE ADJUSTING MASK PT WAS FOUND TO HAVE SEVERE REDNESS AND SOME SKIN BREAKDOWN ON BRIDGE OF THE NOSE POSSIBLY DUE TO BIPAP. MEPILEX IS IN PLACE. EMILI ÁLVAREZ WAS MADE AWARE AND WILL BE TAKING PICTURED. WILL CONTINUE TO MONITOR. Addendum: 06/07/17 at 2003 by CHUN BAEZA RT Amended: Links added.
--- NOTE | 2017-06-07 20:00 | NUR ---
TIME STUDY ANALYST NOTE RT NOTED REDNESS ON BRIDGE OF NOSE. MEPILEX PLACED BARRIER FROM BIPAP. WOUND CONSULT ORDERED FOR TOMORROW.
[2017-06-08] VITALS (27 sets, daily range): BP systolic 109–170; BP diastolic 37–103
--- NOTE | 2017-06-08 | NUR ---
SPEED WINDER NOTE RT DECREASED OXYGEN PERCENTAGE FROM 60% TO 55% VIA BIPAP AND SATURATING 96-98% AT THIS TIME. WILL MONITOR.
[2017-06-08] MEDS: IPRATROPIUM NEB FS 0.5 MG/2.5 ML AMPUL.NEB NEB SCH ×7 (00:10→23:11)
[2017-06-08] MEDS: ALBUTEROL HALF STRENGTH 1.25 MG/3 ML VIAL.NEB NEB SCH ×3 (00:10→07:44)
[2017-06-08] MEDS: DEXAMETHASONE SOD PHOSPHATE 4 MG/ML VIAL IV SCH ×2 (03:50→10:00)
[2017-06-08] MEDS: MORPHINE SULFATE INJ 4 MG/ML DISP.SYRIN IV PRN (03:50)
--- NOTE | 2017-06-08 04:44 | NUR ---
EDITOR NOTE PT NOTED TO BE RESTLESS AND WITH FACIAL GRIMACE. MORPHINE 2MG/0.5ML IVP ADMINISTERED WITH STABLE VITAL SIGNS. WILL MONITOR.
[2017-06-08 05:36] LABS: BASOPHILS % (AUTO) 0.1 % (0.0-2.0); HEMATOCRIT 28 % (33-45); HEMOGLOBIN 9.4 g/dL (11.5-14.8); LYMPHOCYTES # (AUTO) 0.4 /CMM (0.8-4.8); LYMPHOCYTES % (AUTO) 3.2 % (20.0-44.0); MEAN CORPUSCULAR HEMOGLOBIN 32 PG (26.0-33.0); MEAN CORPUSCULAR HGB CONC 33 g/dl (31.0-36.0); MEAN CORPUSCULAR VOLUME 97 fL (82-100); MONOCYTES # (AUTO) 0.9 /CMM (0.1-1.30); MONOCYTES % (AUTO) 6.9 % (2.0-12.0); NEUTROPHILS # (AUTO) 11.6 /CMM (1.8-8.9); NEUTROPHILS % (AUTO) 89.8 % (43.0-81.0); PLATELET COUNT (AUTO) 252 /CMM (150-450); RDW COEFFICIENT OF VARIATION 14.1 (11.5-15.0); RED BLOOD CELL COUNT(AUTO) 2.93 MIL/uL (4.0-5.2); WHITE BLOOD COUNT (AUTO) 12.9 K/uL (4.3-11.0)
[2017-06-08 05:49] LABS: CALCIUM, SERUM 8.7 mg/dL (8.5-10.1); CARBON DIOXIDE 35 mmol/L (21-32); CHLORIDE 104 mmol/L (98-107); CREATININE 0.7 mg/dL (0.6-1.3); GLUCOSE 119 mg/dL (74-106); MAGNESIUM 1.6 mg/dL (1.8-2.4); PHOSPHORUS 2.8 mg/dL (2.5-4.9); POTASSIUM 3.4 mmol/L (3.5-5.1); SODIUM SERUM 144 mmol/L (136-145); UREA NITROGEN, BLOOD 13 mg/dL (7-18)
[2017-06-08] MEDS: ZOSYN IVPB 3.375 G in IV D5W 50ml IV SCH (06:08)
--- NOTE | 2017-06-08 06:52 | NUR ---
ZIPPER SLIDE ATTACHER CLOSING NOTE PT REMAINED STABLE DURING SHIFT. NO ACUTE DISTRESS NOTED. ALL NEEDS ATTENDED TO PROMPTLY. BIPAP IN PLACE AND SATURATION 97% AT THIS TIME. NO FACIAL GRIMACE NOTED. HOB ELEVATED. KEPT CLEAN AND DRY. REPOSITIONED Q2H. WILL ENDORSE TO NEXT SHIFT FOR CONTINUITY OF CARE.
--- NOTE | 2017-06-08 08:00 | NUR ---
ICU/RN AM SHIFT INITIAL NOTES RECEIVED PT ASLEEP IN BED, AROUSEABLE, NO ACUTE RESPIRATORY DISTRESS OR CHANGE OF CONDITION. PT A/O X 1. ON BI-PAP WITH RATES SET PRESCRIBED, SATURATING @ 96%, LUNG SOUNDS DIMINISHED. ON TELE WITH SINUS RHYTHM, HR 83. PICC LINE FLUSHED, PATENT WITH NO S/S OF INFECTION, ON TKO. MALCOLM CATHETER INTACT WITH YELLOW URINE OUTPUT. BILATERAL WRIST RESTRAINTS REMOVED TO CHECK FOR CIRCULATION AND COMFORT, THE PLACED BACK. PT ON NPO STATUS. SCHEDULED AM MEDS TO BE GIVEN. TODAY PT'S FAMILY WILL HAVE A MEETING WITH DR. SPEARS TO CLARIFY PT'S CODE STATUS. CL WITHIN REACHED, SAFETY MAINTAINED AND ASPIRATION PRECAUTION OBSERVED. ON GOING MONITORING.
[2017-06-08] MEDS: PROSOURCE / PROSTAT (PYXIS) 30 ML UDC GT SCH (08:06)
[2017-06-08] MEDS: LACTOBACILLUS RHAMNOSUS GG 1 EACH CAP.SPRINK PO SCH ×2 (08:06→08:16)
--- NOTE | 2017-06-08 08:43 | NUR ---
ICU/RN CODE STATUS DR. SPEARS JUST SPOKE WITH 2 FAMILY MEMBERS REGARDING PT'S CODE STATUS, PER MD PT WILL BE PLACED ON COMFORT CARE, DISCONTINUED BI-PAP AND PLACED ON MORPHINE DRIP. NOTED.
[2017-06-08] MEDS: PANTOPRAZOLE 40 MG VIAL IV SCH (09:00)
[2017-06-08] MEDS: ENOXAPARIN SODIUM 40 MG/0.4 ML DISP.SYRIN SQ SCH (09:00)
[2017-06-08] MEDS: OLANZAPINE 5 MG/TAB.RAPDIS SL SCH (09:00)
[2017-06-08] MEDS: Z GUARD REMEDY 2 OZ OINT TP SCH ×2 (09:28→21:00)
[2017-06-08] MEDS ORDERED: LORAZEPAM INJ 2 MG/ML VIAL IVP PRN (10:00)
[2017-06-08] MEDS: VANCOMYCIN 500 MG in IV D5W 100 ML IV SCH (10:00)
[2017-06-08] MEDS ORDERED: MORPHINE SULFATE PF DRIP 250 MG in IV D5W 240 ML IV PRN (10:00)
[2017-06-08] MEDS ORDERED: MORPHINE SULFATE INJ 10 MG/ML DISP.SYRIN IV ONE (10:00)
--- NOTE | 2017-06-08 10:24 | NUR ---
Social service consult requested by Dr. Smith to assist family with list of services. SW printed out list of burials and cemeteries and gave it to RN Fabiola since pt's family were not available bedside. SW informed RN Pilar to notify SW if family had any questions.
[2017-06-08 10:38] LABS: ABG BASE EXCESS 9.6 mmol/L; ABG OXYGEN SATURATION 96.8 % (92.0-98.5); ABG PCO2 65.5 mmHg (35.0-45.0); ABG PH 7.368 (7.350-7.450); ABG PO2 106.9 mmHg (75.0-100.0); COHb 0.3 % (0.5-1.5); MetHb 1.5 % (0.0-1.5); O2Hb 95.1 % (94.0-97.0); PEEP,BG 5 cm H2O
[2017-06-08 11:17] LABS: SITE, ABG Right Radial; VENT MODE, BG SIMV 4 PS 15; VT, ABG 400 mL
[2017-06-08] MEDS: MORPHINE SULFATE 30 MG in IV NS 0.9% 28 ML, PCA TOTAL VOLUME 1 BAG IV PRN ×6 (12:42→20:30)
--- NOTE | 2017-06-08 12:49 | NUR ---
ICU/RN MORPHINE DRIP MORPHINE DRIP INITIATED, INFUSING @ 2MG/HR. ON GOING MONITORING.
--- NOTE | 2017-06-08 14:31 | NUR ---
ICU/RN OFF BI-PAP PT PLACED ON 2L O2 VIA N/C FOR COMFORT MEASURES. ON GOING MONITORING.
--- NOTE | 2017-06-08 17:00 | NUR ---
ICU/RN AFTERNOON ROUNDS PM CARE PROVIDED, PT IS COMFORTABLE, NO SOB. MORPHINE INFUSION ON GOING @ 3MG/HR. ON GOING MONITORING.
--- NOTE | 2017-06-08 18:30 | NUR ---
ICU/RN MORPHINE DOSE INCREASED PT NOTED TO BE UNCOMFORTABLE, MORPHINE DOSE INCREASED TO 4MG/HR. ON GOING MONITORING.
[2017-06-08] MEDS ORDERED: LORAZEPAM INJ 2 MG/ML VIAL IV PRN (19:00)
--- NOTE | 2017-06-08 19:33 | NUR ---
ICU/RN AM SHIFT END NOTES PT WITH ON GOING MORPHINE INFUSION @ 4MG/HR FOR COMFORT CARE. COMFORTABLE. ENDORSED TO PM NURSE TO CONTINUE CARE. BILATERAL WRIST RESTRAINTS IN PLACED. MALCOLM CATHETER INTACT, PICC LINE PATENT. ALL NEEDS MET. CL WITHIN REACHED AND SAFETY MAINTAINED.
--- NOTE | 2017-06-08 20:34 | NUR ---
RECEIVED REPORT FROM EMILI MARTINEZ IN ICU.
--- NOTE | 2017-06-08 21:07 | NUR ---
REC'D PT. ON MORPHINE GTT.AT 4 MG/HR. PT.IS ON COMFORT MEASURES. PT.IS ALERT ENOUGH TO NOD-"YES" OR "NO" TO QUESTIONS ASKED. HEART MONITOR SHOWS ST/LOW 100'S. AFEBRILE. PRESSURES STABLE. VSS. ALL PULSES PALPABLE X 4 EXT.,BUT WEAK. BILAT.SOFT RESTRAINTS ARE ON. RUE PICC LINE HAS ALL PORTS PATENT TO FLUSH. VERBAL PHONE REPORT GIVEN TO JUDY MOCK. PT.WAS TRANSFERRED TO 3RD FLOOR. ROOM 319. CONT.POC.
--- NOTE | 2017-06-08 21:10 | NUR ---
FABRICS AND MATERIAL CUTTER NOTES PT ARRIVED ONTO THE UNIT VIA HOSPITAL BED FROM ICU. PT IS ON COMFORT CARE. PT HAS MORPHINE DRIP RUNNING AT 4MG/HR. PT ABLE TO OPEN EYES. NO VERBAL RESPONSE. PT HAS A RIGHT UPPER ARM PICC LINE. ALL PORTS INTACT AND PATENT. PT IS ON 2L NC CANNULA. PT MALCOLM CATHETER IN PLACE, INTACT, AND DRAINING WELL. NO APPARENT S/S OF PAIN OR DISTRESS AT THIS TIME. SAFETY PRECAUTIONS IN PLACE. PER ICU NURSE FAMILY AWARE OF PLAN AND HAVE BEEN GIVEN A LIST OF MORTUARIES. WILL CONTINUE TO MONITOR AND MEET PT NEEDS.
[2017-06-09] MEDS: IPRATROPIUM NEB FS 0.5 MG/2.5 ML AMPUL.NEB NEB SCH ×5 (02:35→19:30)
[2017-06-09] MEDS: MORPHINE SULFATE 30 MG in IV NS 0.9% 28 ML, PCA TOTAL VOLUME 1 BAG IV PRN ×9 (04:41→17:39)
--- NOTE | 2017-06-09 04:47 | NUR ---
MS RN NOTE INCREASED MORPHINE DRIP FROM 4ML/HR TO 5ML/HR. WILL CONTINUE TO MONITOR.
--- NOTE | 2017-06-09 06:37 | NUR ---
RN CLOSING NOTES PT RESTING IN BED. COMFORT CARE MEASURES IN PLACE. PT CURRENTLY ON 5MG/HR MORPHINE DRIP. NO APPARENT S/S OF PAIN OR DISTRESS. BREATHING HAS BECOME MORE LABORED OVER THE EVENING. PT ALSO RECEIVED PRN ATIVAN TO HELP EASE APPARENT ANXIETY AND DISCOMFORT. PT HAS A CHANTEL PICC LINE ALL PORTS ARE INTACT AND PATENT. PT HAS A MALCOLM CATHETER, INTACT AND DRAINING WELL. PT HAS BILATERAL SOFT WRIST RESTRAINTS. SAFETY PRECAUTIONS IN PLACE. WILL ENDORSE TO DAY SHIFT NURSE FOR CONTINUITY OF CARE.
[2017-06-09 08:00] VITALS: BP 123/61
--- NOTE | 2017-06-09 08:00 | NUR ---
RN MS NOTES RECEIVED PT IN BED, NO FACIAL GRIMACING OR MOANING, NO SIGN OF PAIN, ON O2 VIA MASK AT 15LPM, BREATHING EVEN BUT PROLONGED, ON MORPHINE DRIP VIA PICC LINE AT RIGHT UPPER ARM, INTACT AND PATENT, F/C DRAINING WELL WITH CLEAR, YELLOW URINE, KEPT WARM AND DRY, KEPT COMFORTABLE.
[2017-06-09] MEDS: Z GUARD REMEDY 2 OZ OINT TP SCH ×2 (09:02→21:37)
[2017-06-09] MEDS ORDERED: KEY,NONCONTROL,TO KEEP IN PYXI 1 EA MC ONE (10:17)
[2017-06-09 12:00] VITALS: BP 101/60
--- NOTE | 2017-06-09 12:14 | NUR ---
RN MS NOTES PT IN BED, NON VERBALLY RESPONSIVE, RESPIRATIONS REGULAR AT 16 BPM, ON O2 VIA MASK AT 15LPM, KEPT CLEAN AND DRY, REPOSITIONED FOR COMFORT, KEPT STORE LEADER BED.
--- NOTE | 2017-06-09 12:29 | NUR ---
RN MS NOTES PT SEEN BY DR. SPEARS, PT COMFORTABLE.
[2017-06-09 16:00] VITALS: BP 100/58
--- NOTE | 2017-06-09 18:30 | NUR ---
RN MS NOTES PT IN BED, NON RESPONSIVE, NO SIGN OF PAIN OR DISCOMFORT, ON MORPHINE DRIP AT 5ML/HR VIA PICC LINE AT RIGHT UPPER ARM, ON O2 VIA NON REBREATHER MASK AT 15LPM, FAMILY CAME AND VISITED, PER DAUGHTERS KEYLA AND ROGER, THEY DONT HAVE MORTUARY PLAN, INFORMED FAMILY THAT IN THE EVENT OF PT'S PASSING WE WILL JUST FOLLOW HOSPITAL PROTOCOL, VERBALIZED UNDERSTANDING, KEPT CLEAN AND COMFORTABLE, REPOSITIONED FOR COMFORT, KEPT TRIPE FINISHER BED.
--- NOTE | 2017-06-09 19:30 | NUR ---
RN OPENING NOTES PATIENT IS IN BED, NON RESPONSIVE. PATIENT IS ON COMFORT MEASURES. NO SIGN OF PAIN OR DISCOMFORT NOTED. ON MORPHINE DRIP AT 5ML/HR VIA PICC LINE AT RIGHT UPPER ARM. PATIENT IS ON O2 VIA NON REBREATHER MASK AT 15LPM. F/C IS IN PLACE, DRAINING CLEAR AND YELLOW URINE. BED IN LOW AND LOCKED POSITION. SIDE RAILSX2. CALL LIGHT WITHIN EASY REACH. WILL CONTINUE TO MONITOR.
[2017-06-09 20:00] VITALS: BP 127/64
[2017-06-09 20:37] VITALS: BP 127/64
[2017-06-09] MEDS: MORPHINE SULFATE PF DRIP 250 MG in IV D5W 240 ML IV PRN (23:55)
[2017-06-10] MEDS: IPRATROPIUM NEB FS 0.5 MG/2.5 ML AMPUL.NEB NEB SCH ×6 (00:01→20:35)
--- NOTE | 2017-06-10 00:27 | NUR ---
RN NOTES MORPHINE DRIP RUNNING AT 6 ML/HR. MEDICATION TITRATED PER PROTOCOL.WILL CONTINUE TO MONITOR.
--- NOTE | 2017-06-10 06:23 | NUR ---
RN NOTES MORPHINE DRIP RUNNING AT 7 ML/HR. MEDICATION TITRATED PER PROTOCOL. WILL CONTINUE TO MONITOR.
--- NOTE | 2017-06-10 06:43 | NUR ---
RN CLOSING NOTES PATIENT IS IN BED, NON RESPONSIVE. PATIENT IS ON COMFORT MEASURES. RESPIRATIONS 12. NO SIGN OF PAIN OR DISCOMFORT NOTED. ON MORPHINE DRIP AT 7 ML/HR VIA PICC LINE AT RIGHT UPPER ARM. PATIENT IS ON O2 VIA NON REBREATHER MASK AT 15LPM. F/C IS IN PLACE, DRAINING CLEAR AND YELLOW URINE. ALL NEEDS ARE MET. BED IN LOW AND LOCKED POSITION. SIDE RAILSX2. CALL LIGHT WITHIN EASY REACH. WILL ENDORSE TO RN DAY SHIFT FOR RHONDA.
--- NOTE | 2017-06-10 07:30 | NUR ---
RN MS NOTES PT IN BED, NON RESPONSIVE TO VERBAL STIMULATION, SKIN IS WARM TO TOUCH, ON O2 AT 15LPM VIA MASK, NON LABORED, ON MORPHINE DRIP ORDERED, KEPT CLEAN AND COMFORTABLE.
[2017-06-10 08:00] VITALS: BP 115/53
[2017-06-10] MEDS: Z GUARD REMEDY 2 OZ OINT TP SCH ×2 (08:33→21:10)
--- NOTE | 2017-06-10 13:00 | NUR ---
RN MS NOTES PT IN BED, RESTING, NO FACIAL GRIMACING OR MOANING, RESPIRATIONS REGULAR, RESPIRATION RATE OF 10-12 BREATHS PER MINUTE, F/C DRAINING MINIMALLY WITH CLEAR, YELLOW URINE, KEPT CLEAN AND DRY, TURNED AND REPOSITIONED FOR COMFORT.
[2017-06-10 16:00] VITALS: BP 106/57
[2017-06-10] MEDS ORDERED: KEY,NONCONTROL,TO KEEP IN PYXI 1 EA MC ONE ×2 (17:24)
--- NOTE | 2017-06-10 18:31 | NUR ---
RN MS NOTES PT IN BED, UNRESPONSIVE TO VERBAL STIMULI, ON O2 AT 15LPM VIA NON REBREATHER MASK, ON MORPHINE DRIP, NO FACIAL GRIMACING OR MOANING NOTED, KEPT CLEAN AND DRY, TURNED AND REPOSITIONED Q2 HRS, COMFORT MEASURES PROVIDED.
--- NOTE | 2017-06-10 19:30 | NUR ---
RN OPENING NOTES PATIENT IS IN BED, NON RESPONSIVE. ON COMFORT MEASURES. RESPIRATIONS 12. NO SIGN OF PAIN OR DISCOMFORT NOTED. ON MORPHINE DRIP AT 9 ML/HR VIA PICC LINE AT RIGHT UPPER ARM. PATIENT IS ON O2 VIA NON REBREATHER MASK AT 15LPM. F/C IS IN PLACE, DRAINING CLEAR AND YELLOW URINE. BED IN LOW AND LOCKED POSITION. SIDE RAILSX2. CALL LIGHT WITHIN EASY REACH. WILL CONTINUE TO MONITOR AND ASSESS DURING THE SHIFT.
[2017-06-10 20:00] VITALS: BP 116/44
[2017-06-11] MEDS: IPRATROPIUM NEB FS 0.5 MG/2.5 ML AMPUL.NEB NEB SCH ×6 (00:22→20:13)
--- NOTE | 2017-06-11 07:40 | NUR ---
RN CLOSING NOTES PATIENT IS IN BED, NON RESPONSIVE. ON COMFORT MEASURES. RESPIRATIONS 10. NO SIGN OF PAIN OR DISCOMFORT NOTED. ON MORPHINE DRIP AT 9 ML/HR VIA PICC LINE AT RIGHT UPPER ARM. PATIENT IS ON O2 VIA NON REBREATHER MASK AT 15LPM. F/C IS IN PLACE, DRAINING CLEAR AND YELLOW URINE. BED IN LOW AND LOCKED POSITION. SIDE RAILSX2. CALL LIGHT WITHIN EASY REACH. WILL ENDORSE TO RN DAY SHIFT FOR RHONDA.
--- NOTE | 2017-06-11 08:20 | NUR ---
ms rn received on bed,comfort care patient, on o2 mask, respirations 10/minute, on morphine drip at 9mg/hr, almost empty now, will call rx to send bag,repositioned for comfort, will monitor patient.
--- NOTE | 2017-06-11 09:30 | NUR ---
ms rn morphine bag changed, all needs attended.
--- NOTE | 2017-06-11 10:00 | NUR ---
MS RN WAS SEEN BY , NO NEW ORDER AT THIS TIME, EXPECTED OUTCOME TILL 06/13.
[2017-06-11] MEDS: Z GUARD REMEDY 2 OZ OINT TP SCH ×2 (10:02→21:16)
[2017-06-11] MEDS: MORPHINE SULFATE PF DRIP 250 MG in IV D5W 240 ML IV PRN (10:31)
--- NOTE | 2017-06-11 19:00 | NUR ---
RN OPENING NOTES PATIENT IS IN BED, NON RESPONSIVE. ON O2 VIA NON REBREATHER MASK AT 15LPM. MORPHINE DRIP AT 9ML/HR VIA PICC LINE AT RIGHT UPPER ARM. NO SIGNS OF PAIN OR DISCOMFORT NOTED. F/C IS IN PLACE DRAINING YELLOW VIA GRAVITY CLEAR AND YELLOW. SAFETY MEASURES IN PLACE. LOW BED AT ALL TIMES. WILL CONTINUE TO MONITOR.
--- NOTE | 2017-06-11 19:24 | NUR ---
MS RN ON BED, STILL W/ 8BREATH/MINUTE, WILL MONITOR PATIENT , STILL ON 9MG/HR MORPHINE,ALL NEEDS ATTENDED.
[2017-06-11 20:00] VITALS: BP 130/48
[2017-06-12] MEDS: IPRATROPIUM NEB FS 0.5 MG/2.5 ML AMPUL.NEB NEB SCH ×6 (00:17→20:53)
--- NOTE | 2017-06-12 03:00 | NUR ---
MS RN NOTES MORPHINE DOSE INCREASED PER PROTOCOL AND PER M.D RR <8 PT NOTED TO BE UNCOMFORTABLE, MORPHINE DOSE INCREASED TO 11MG/HR. ON GOING MONITORING. CHARGE NURSE AWARE
--- NOTE | 2017-06-12 06:31 | NUR ---
MS RN CLOSING NOTES PT EYES OPEN, IN BED,NON VERBAL, ON O2 VIA NON REBREATHER MASK AT 15LPM. 02 SAT 92% MORPHINE DRIP AT 11MG/HR VIA PICC LINE AT RIGHT UPPER ARM. NO SIGNS OF PAIN OR DISCOMFORT NOTED. F/C IS IN PLACE DRAINING YELLOW VIA GRAVITY CLEAR AND YELLOW. KEPT CLEAN AND DRY AND COMFORTABLE, ALL NURSING CARE RENDERED. NEEDS ATTENDED AND ANTICIPATED, ASSIST REPOSITION Q2H. FREQUENT VISUAL CHECK DONE FOR SAFETY EVERY 2 HOURS. GOOD SKIN CARE PROVIDED. ON LOW BED AT ALL TIMES TO ENSURE SAFETY. SAFE HAZARD FREE ENVIRONMENT PROVIDED. CALL LIGHT WITHIN EASY TO REACH. WILL ENDORSE NEXT SHIFT CONTINUITY OF CARE.
--- NOTE | 2017-06-12 07:10 | NUR ---
RN OPENING NOTES RECEIVED PT FROM NIGHTSHIFT NURSE IN BED, NON RESPONSIVE. ON O2 VIA NON REBREATHER MASK AT 15LPM. MORPHINE DRIP AT 11ML/HR VIA PICC LINE AT RIGHT UPPER ARM. NO SIGNS OF PAIN OR DISCOMFORT NOTED. F/C IS IN PLACE DRAINING YELLOW VIA GRAVITY CLEAR AND YELLOW. BED IN LOW LOCKED POSITION, SIDE RAILS UP X3, CALL LIGHT WITHIN REACH. WILL CONTINUE TO MONITOR.
[2017-06-12 08:00] VITALS: BP 119/44
[2017-06-12] MEDS: Z GUARD REMEDY 2 OZ OINT TP SCH ×2 (08:31→20:38)
--- NOTE | 2017-06-12 10:49 | NUR ---
MS RN NOTES MORPHINE DRIP INCREASED TO 13MG/HR. DOSE VERIFIED WITH CHARGE NURSE.
[2017-06-12] MEDS ORDERED: KEY,NONCONTROL,TO KEEP IN PYXI 1 EA MC ONE (12:28)
[2017-06-12] MEDS: MORPHINE SULFATE PF DRIP 250 MG in IV D5W 240 ML IV PRN (12:31)
[2017-06-12 16:00] VITALS: BP 81/36
--- NOTE | 2017-06-12 18:42 | NUR ---
MS RN CLOSING NOTES NO ACUTE CHANGED IN CONDITION DURING SHIFT. PT REMAINS ON ON O2 VIA NON REBREATHER MASK AT 15LPM. MORPHINE DRIP AT 17MG/HR VIA PICC LINE AT RIGHT UPPER ARM. NO SIGNS OF PAIN OR DISCOMFORT NOTED. F/C IS IN PLACE AND CONTINUING TO DRAIN . PT KEPT CLEAN, DRY AND COMFORTABLE, ALL NURSING CARE RENDERED. NEEDS ATTENDED AND ANTICIPATED, ASSIST IN REPOSITIONING Q2H. FREQUENT VISUAL CHECK DONE FOR SAFETY EVERY 2 HOURS. GOOD SKIN CARE PROVIDED. SAFETY MEASURES REMAIN IN PLACE. WILL ENDORSE TO NIGHTSHIFT NURSE FOR RHONDA
--- NOTE | 2017-06-12 19:00 | NUR ---
RN OPENING NOTES RECEIVE PT IN BED, STILL ON O2 VIA NON REBREATHER MASK AT 15LPM. NO SIGNS OF PAIN OR DISCOMFORT NOTED. MORPHINE DRIP AT 17MG/HR VIA PICC LINE AT RIGHT UPPER ARM. F/C IS IN PLACE DRAINING YELLOW VIA GRAVITY CLEAR AND YELLOW. SAFETY MEASURES IN PLACE. LOW BED AT ALL TIMES. WILL CONTINUE TO MONITOR.
[2017-06-12 20:00] VITALS: BP 83/40
[2017-06-13] MEDS: IPRATROPIUM NEB FS 0.5 MG/2.5 ML AMPUL.NEB NEB SCH ×7 (00:03→23:04)
--- NOTE | 2017-06-13 01:10 | NUR ---
MS MOCK NOTES MORPHINE DOSE INCREASED PER PROTOCOL PT NOTED TO BE UNCOMFORTABLE, MORPHINE DOSE INCREASED TO 19MG/HR. CHARGE NURSE VERIFIED DOSE Addendum: 06/13/17 at 0237 by EDDIE VIGIL RN ADDENDUM: PT NOTED WITH BREATHING SHALLOW
[2017-06-13] MEDS ORDERED: KEY,NONCONTROL,TO KEEP IN PYXI 1 EA MC ONE (04:46)
[2017-06-13] MEDS: MORPHINE SULFATE PF DRIP 250 MG in IV D5W 240 ML IV PRN ×2 (04:51→19:00)
--- NOTE | 2017-06-13 06:15 | NUR ---
MS RN CLOSING NOTES PT IN BED,NON VERBAL,ASLEEP STILL ON O2 VIA NON REBREATHER MASK AT 15LPM. 02 SAT 90% MORPHINE DRIP AT 19MG/HR VIA PICC LINE AT RIGHT UPPER ARM. NO SIGNS OF PAIN OR DISCOMFORT NOTED. ASSIST REPOSITION Q2H. KEPT CLEAN AND DRY AND COMFORTABLE, ALL NURSING CARE RENDERED. NEEDS ATTENDED AND ANTICIPATED, FREQUENT VISUAL CHECK DONE FOR SAFETY EVERY 2 HOURS. GOOD SKIN CARE PROVIDED. F/C IS IN PLACE DRAINING YELLOW VIA GRAVITY CLEAR AND YELLOW. ON LOW BED AT ALL TIMES TO ENSURE SAFETY. SAFE HAZARD FREE ENVIRONMENT PROVIDED. CALL LIGHT WITHIN EASY TO REACH. WILL ENDORSE NEXT SHIFT CONTINUITY OF CARE.
--- NOTE | 2017-06-13 07:56 | NUR ---
ms rn received a palliative patient on bed, agonal breathing, w/ morphine drip at 19mg/hour, pedroza to gravity, will monitor patient's condition.
--- NOTE | 2017-06-13 10:00 | NUR ---
ms rn patient's daughter called, getting updates about her mom, all needs attended.
--- NOTE | 2017-06-13 18:00 | NUR ---
MS RN CHANGED MORPHINE BAG,NO CHANGE OF CONDITION.
[2017-06-13] MEDS: Z GUARD REMEDY 2 OZ OINT TP SCH ×2 (18:06→21:05)
--- NOTE | 2017-06-13 19:20 | NUR ---
RN OPENING NOTES PT IS NONVERBAL. PT IS ON COMFORT CARE. NO APPARENT S/S OF PAIN OR DISTRESS. RESPIRATIONS ARE EVEN BILATERALLY NO APPARENT S/S OF SOB. CURRENTLY RECEIVING MORPHINE DRIP 19MG/HR. PT HAS A CHANTEL PICC RUNNING NS @5ML/HR. SAFETY PRECAUTIONS IN PLACE. BED IN LOW LOCKED POSITION, X3 SIDERAILS UP. WILL CONTINUE TO MONITOR.
[2017-06-13 20:00] VITALS: BP 63/33
[2017-06-14] MEDS: IPRATROPIUM NEB FS 0.5 MG/2.5 ML AMPUL.NEB NEB SCH ×2 (03:29→07:35)
--- NOTE | 2017-06-14 07:40 | NUR ---
RN CLOSING NOTES PT IS NONVERBAL. PT IS ON COMFORT CARE. NO APPARENT S/S OF PAIN OR DISTRESS. RESPIRATIONS ARE EVEN BILATERALLY NO APPARENT S/S OF SOB. CURRENTLY RECEIVING MORPHINE DRIP 19MG/HR. PT HAS A CHANTEL PICC RUNNING NS @5ML/HR. SAFETY PRECAUTIONS IN PLACE. BED IN LOW LOCKED POSITION, X3 SIDERAILS UP. WILL ENDORSE TO DAY SHIFT NURSE FOR CONTINUITY OF CARE.
--- NOTE | 2017-06-14 07:45 | NUR ---
MS RN RECEIVED A PALLIATIVE PATIENT ON BED, ON MORPHINE DRIP AT 19MG/HR INFUSING WELL AT RIGHT UPPER ARM PICC LINE,ABOUT 8 BREATH /MINUTE.
--- NOTE | 2017-06-14 07:49 | NUR ---
HHN TX HELD AT THIS TIME. PT ON PALLIATIVE CARE. RN AWARE AND WILL DISCONTINUE HHN TX.
--- NOTE | 2017-06-14 08:00 | NUR ---
MS RN PATIENT FOUND TO BE NO RESPIRATION,NO V/S,NO PULSE, PRONOUNCE BY CHARGE NURSE CHANTALE.
--- NOTE | 2017-06-14 08:30 | NUR ---
MS POLICE WORKER NOTIFIED, RN CAT SCAN TECHNOLOGIST AWARE AND LEFT MESSAGE TO DOCTOR SPEARS.
--- NOTE | 2017-06-14 10:05 | NUR ---
MS RN BODY WAS TRANSFERRED TO [facility].
== END 2017-06-14 08:00 | disposition expired | DRG 871 ==
LOC: ER 09:03 → OBSER 12:17 → ICU 12:36 → MED 06-08 20:44
PROVIDERS: ADMIT Legal Medicine; ATTEND Legal Medicine
PROC: 5A1945Z Respiratory Ventilation, 24-96 Consecutive Hours (ICD-10-PCS; principal; 2017-06-01)
PROC: 0BH18EZ Insertion of Endotracheal Airway into Trachea, Via Natural or Artificial Opening Endoscopic (ICD-10-PCS; 2017-06-01)
PROC: 5A09457 Assistance with Respiratory Ventilation, 24-96 Consecutive Hours, Continuous Positive Airway Pressure (ICD-10-PCS; 2017-06-07)
DX: A41.9 Sepsis, unspecified organism (principal); J18.9 Pneumonia, unspecified organism; G93.40 Encephalopathy, unspecified; J96.01 Acute respiratory failure with hypoxia; J96.02 Acute respiratory failure with hypercapnia; J44.1 Chronic obstructive pulmonary disease with (acute) exacerbation; Z51.5 Encounter for palliative care; E78.5 Hyperlipidemia, unspecified; I10 Essential (primary) hypertension; F20.9 Schizophrenia, unspecified; M19.90 Unspecified osteoarthritis, unspecified site; Z79.899 Other long term (current) drug therapy; F29 Unspecified psychosis not due to a substance or known physiological condition
CPT/HCPCS: 31720; 36415; 36600; 70450-TC; 71045-TC; 80048-TC; 80076-TC; 80202-TC; 81000-TC; 82803-TC; 83605-TC; 83735-TC; 84100-TC; 84484-TC; 85025-TC; 85730-TC; 87040-TC; 87081-TC; 87086-TC; 87400; 93970-TC; 94002-TC; 94003-TC; 94799-TC; A4216; A4606; A4624; C1751; C9113; J0330; J1100; J1650; J1940; J2060; J2250; J2270; J2274; J2543; J3370; J3475; J3480; J3490; J7030; J7040; J7042; J7050; J7060; Z7610